=== PATIENT | male | born 1970 | race African-American/Black ===

== ENCOUNTER 2018-06-06 19:27 | Observation (INO) | payer OTHER ==
[2018-06-06 20:08] LABS: #Basophils 0.1 thou/uL (0.0-0.2); #Eosinphils 0.1 thou/uL (0.0-0.7); #Lymphocytes 1.2 thou/uL (1.20-3.40); #Monocytes 1.3 thou/uL (0.11-0.59); #Neutrophils 7.6 thou/uL (1.40-6.50); %Basophils 0.7 % (0.0-1.0); %Eosinophils 0.5 % (0.0-10.0); %Monocytes 12.6 % (0.0-10.0); %Neutrophils 74.2 % (42.0-75.0); Hemoglobin 14.5 g/dL (14.0-18.0); Mean Corpuscular HGB CONC 32.8 g/dL (32.0-36.0); Mean Corpuscular Hemoglobin 30.2 pg (27.0-31.0); Mean Corpuscular Volume 91.9 fL (78.0-98.0); Mean Platelet Volume 7.9 fL (7.4-10.4); Platelet Count 315 thou/uL (130-400); RBC Distribution Width 11.8 % (11.5-14.5); Red Blood Cell (RBC) Count 4.79 mill/uL (4.70-6.10); White Blood Cell (WBC) Count 10.2 thou/uL (4.8-10.8)
[2018-06-06] MEDS ORDERED: Lorazepam 2 MG/ML VIAL ONE (20:12)
[2018-06-06 20:29] LABS: ALT (SGPT) 35 U/L (8-55); AST (SGOT) 33 U/L (5-34); Albumin 3.7 g/dL (3.5-5.0); Alkaline Phosphatase 88 U/L (40-150); Anion Gap 14 mmol/L (10-20); BUN (Urea Nitrogen) 22 mg/dL (8.9-20.6); Bilirubin, Total 0.8 mg/dL (0.2-1.2); Calc. Creatinine Clearance 0 mL/min (70-130); Calcium 9.4 mg/dL (7.8-10.44); Carbon Dioxide 30 mmol/L (22-29); Chloride 94 mmol/L (98-107); Estimated GFR-MDRD 36; Globulin 4.4 g/dL (2.4-3.5); Glucose 140 mg/dL (70-105); Potassium 4.1 mmol/L (3.5-5.1); Protein, Total 8.1 g/dL (6.0-8.3); Sodium 134 mmol/L (136-145)
--- NOTE | 2018-06-06 21:30 | CT ---
CT BRAIN WITHOUT CONTRAST 06/06/18 HISTORY: Syncope. COMPARISON: CT brain 09/14/16. FINDINGS: No acute hemorrhage or infarct. No midline shift or mass effect. Ventricular size and extra-axial CSF spaces are normal. Calvarium is intact. The paranasal sinuses and mastoids are clear. IMPRESSION: No acute intracranial abnormality. 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 POS: [facility]
[2018-06-06 22:17] LABS: Phosphorus 3.6 mg/dL (2.3-4.7)
[2018-06-06 22:20] LABS: Magnesium 1.6 mg/dL (1.6-2.6)
--- NOTE | 2018-06-06 22:30 | RAD ---
CHEST ONE VIEW: 06/06/18 HISTORY: Dizziness and weakness. COMPARISON: Radiograph 12/02/15. FINDINGS: Lungs are clear. No pneumothorax or effusion. The cardiac silhouette and mediastinal contours are wit hin normal limits IMPRESSION: No acute intrathoracic abnormality. POS: [facility]
[2018-06-06] MEDS ORDERED: Multivitamins, Adult 10 ML, Thiamine HCl 100 MG, Folic Acid 1 MG in Dextrose 5 %-0.45 %... IV SCH (23:00)
--- NOTE | 2018-06-06 23:18 | CT ---
CT ABDOMEN AND PELVIS WITHOUT CONTRAST 06/06/18 HISTORY: Weakness. COMPARISON: CT aortic dissection protocol 12/02/15. FINDINGS: The lung bases are clear. No pericardial effusion. There is dense cholelithiasis. No evidence for cho lecystitis. The urinary bladder is distended. No free intraperitoneal gas or fluid. No dilated loops of large or small bowel. No retroperitoneal adenopathy. Mild degenerative changes of the lower lumbar spine. IMPRESSION: 1. Urinary bladder distention. No nephroureterolithiasis or hydroureteronephrosis. No secondary evidence of a recently passed stone. 2. Cholelithiasis without cholecystitis. POS: [facility]
[2018-06-07] MEDS ORDERED: Zolpidem Tartrate 5 MG TAB PO PRN (00:02)
[2018-06-07] MEDS ORDERED: Acetaminophen 325 MG TAB PO PRN (00:02)
[2018-06-07] MEDS ORDERED: Ondansetron PF 4 MG/2 ML Vial IVP PRN (00:02)
[2018-06-07] MEDS ORDERED: methylPREDNISolone Sod Succ/PF 125 MG/2 ML VIAL IVP SCH (00:15)
[2018-06-07] MEDS ORDERED: Bacteriostatic Water 30 ML VIAL FS PRN (00:20)
[2018-06-07] MEDS ORDERED: methylPREDNISolone Sod Succ 40 MG VIAL ONE ×2 (01:04→08:24)
[2018-06-07] MEDS: methylPREDNISolone Sod Succ 40 MG VIAL IVP SCH ×3 (01:09→17:01)
--- NOTE | 2018-06-07 02:39 | PDOC.EVN ---
Event Note - Event Note Event Note: [id number]
--- NOTE | 2018-06-07 03:00 | HP ---
ADMITTING COMPLAINT: Syncope and fall. ADMITTING HISTORY OF PRESENT ILLNESS: This is a 47-year-old male, with known history of severe alcoholism and alcohol abuse, coming in with syncopal episode and fall. The patient stated that he has not had any drinks, however, his mom at bedside states that apparently he was drinking and had passed out. The patient did hit his head. CT scan shows no acute intracranial abnormality except for an old right basal ganglia infarction. The patient himself was complaining of some abdominal pain as well as significant bilateral knee pain. Of note, does have a history of gout. CT scan shows urinary distention, however, no hydro-nephroureterolithiasis or hydroureteronephrosis was noted. Cholelithiasis was noted without cholecystitis. The patient at point in time of evaluation was saying that he was having knee pain and is unable to walk and that is why he is having these episodes of syncope and his legs giving out. The patient states that this has happened to him in the past when he has had a gout flare, but has not had one recently. The patient otherwise denies any other complaints. No alleviating or aggravating factors. No associated symptoms noted. The patient is seen and examined in the ER. His mother is at bedside. All questions answered. ALLERGIES: TO NOTHING. NO KNOWN DRUG ALLERGIES. HOME MEDICATIONS: See MAR. FAMILY HISTORY: Hypertension and diabetes mellitus type 2. SOCIAL HISTORY: He does have a history of alcohol abuse and appears to have likely drank more alcohol and is apparently having a gout flare. Also prior history of smoking. REVIEW OF SYSTEMS: All systems reviewed, pertinent positives in HPI, otherwise negative. PHYSICAL EXAMINATION: VITAL SIGNS: Blood pressure was 128/88, temperature of 98, O2 saturation 99% on room air, heart rate of 107. GENERAL: The patient is lying in bed, in no acute discomfort. HEENT: Normocephalic, atraumatic. Pupils equal, round, and reactive to light and accommodation. Extraocular muscles intact. NECK: Supple, mobile, nontender. Thyroid appreciated. CARDIOVASCULAR: Regular rate and rhythm, S1, S2. Faint systolic ejection murmur appreciated. RESPIRATORY: Clear to auscultation bilaterally. No increase in AP diameter. ABDOMEN: Positive bowel sounds. Soft, nontender, not distended. No ascites. EXTREMITIES: 2+ peripheral pulses. Bending the knee on both sides causes significant pain. Both knees are erythematous and hotter than the joint should be. NEUROLOGICAL: Cranial nerves 2 through 12 intact. No loss of motor or sensory function. LABORATORY DATA: The patient has CBC that is normal. Basic metabolic panel is normal except for a high sugar of 140, creatinine of 2.34. Creatine kinase of 236. ASSESSMENT: 1. Alcohol abuse. 2. Bilateral knee pain. 3. Acute kidney injury on chronic kidney disease versus chronic kidney disease. 4. Hyponatremia. 5. Metabolic alkalosis. PLAN: At this point in time, we will admit the patient to Internal Medicine Team. We will obtain bilateral knee x-rays. Gout is likely a consideration. Cannot have NSAIDs given the acute kidney injury, so we will start the patient on steroids. Consult to Nephrology as well. Bilateral knee x-rays obtained and pending. Uric acid levels will also be added to the lab for the morning. The patient also was given a banana bag for the hypotension he had earlier. The patient wishes to remain a full code. Case and plan discussed with the patient and his mother at length. They understood and agreed with this plan. Job ID: [id number]
[2018-06-07 04:18] LABS: #Lymphocytes 0.6 thou/uL (1.20-3.40); #Monocytes 0.3 thou/uL (0.11-0.59); #Neutrophils 7.7 thou/uL (1.40-6.50); %Basophils 0.1 % (0.0-1.0); %Eosinophils 0.1 % (0.0-10.0); %Lymphocytes 7.2 % (21.0-51.0); %Monocytes 3.8 % (0.0-10.0); %Neutrophils 88.8 % (42.0-75.0); Hemoglobin 13.2 g/dL (14.0-18.0); Mean Corpuscular HGB CONC 33.7 g/dL (32.0-36.0); Mean Corpuscular Volume 92.1 fL (78.0-98.0); Platelet Count 289 thou/uL (130-400); RBC Distribution Width 11.8 % (11.5-14.5); Red Blood Cell (RBC) Count 4.27 mill/uL (4.70-6.10); White Blood Cell (WBC) Count 8.6 thou/uL (4.8-10.8)
[2018-06-07 04:42] LABS: Anion Gap 12 mmol/L (10-20); BUN (Urea Nitrogen) 19 mg/dL (8.9-20.6); Calc. Creatinine Clearance 0 mL/min (70-130); Calcium 8.9 mg/dL (7.8-10.44); Carbon Dioxide 25 mmol/L (22-29); Chloride 104 mmol/L (98-107); Estimated GFR-MDRD 50; Glucose 154 mg/dL (70-105); Potassium 4.4 mmol/L (3.5-5.1); Sodium 137 mmol/L (136-145); Uric Acid 10.2 mg/dL (3.5-7.2)
--- NOTE | 2018-06-07 07:41 | RAD ---
LEFT KNEE 2 VIEWS: INDICATION: Concern for gout. COMPARISON: Left knee radiograph dated 02/21/2012. FINDINGS: There is worsening mild osteoarthrosis of the left knee. No periarticular erosion is evident. There is soft tissue swelling of the anterior left knee that is stable to the prior exam. Enthesopathic c hange is seen off the patella. IMPRESSION: Stable anterior prepatellar soft tissue swelling may reflect persistent or chronic prepatellar bursit is. POS: [facility]
--- NOTE | 2018-06-07 07:41 | RAD ---
RIGHT KNEE 2 VIEWS: Date: 06/07/18 INDICATION: Concern for gout. COMPARISON: None. FINDINGS: There is prominent soft tissue thickening of the patellar tendon and prepatellar soft tissues, which is nonspecific. There is a suspected radiopaque foreign body within the soft tissues of the anteromed ial right knee. IMPRESSION: Prominent soft tissue swelling of the anterior right knee. This is stable from the comparison in 2016 . Radiopaque foreign body at the anteromedial aspect of the right knee is stable. POS: [facility]
[2018-06-07] MEDS ORDERED: Amlodipine 5 MG TAB ONE (08:24)
[2018-06-07] MEDS: Amlodipine 10 MG TAB PO SCH (08:36)
[2018-06-07] MEDS: Aspirin 81 mg Enteric Coated Tablet PO SCH (08:37)
[2018-06-07] MEDS: Carvedilol 3.125 MG TAB PO SCH ×2 (08:37→16:57)
[2018-06-07] MEDS: Heparin 5,000 UNITS/ML VIAL SC SCH ×2 (11:00→21:01)
[2018-06-07 16:29] VITALS: BMI 26.3
[2018-06-07 17:38] LABS: CRP (Inflammatory) 4.01 mg/dL (= or < 0.5)
[2018-06-07] MEDS ORDERED: hydrALAZINE 20 MG/ML VIAL SLOW IVP PRN (18:09)
--- NOTE | 2018-06-07 18:16 | PDOC.PN ---
- Subjective Encounter Start Date: 06/07/18 Encounter Start Time: 15:14 Subjective: Patient is currently without complaints. He states he has had no further -: dizziness or lightheadedness. Denies having any chest pain. Reports having -: brianna "shock" like pain in his knees and his right big toe, attributed to his gout. [place] this yesterday when he had the moment of lightheadedness/ dizziness. Unable to clearly describe due to having his eyes closed but states it has not reoccurred. He has not had any abdominal pain or cramping. No bowel changes or urinary symptoms. No tremors or agitation despite abrupt cessation of Alcohol this past Sunday. He was drinking 24 cans of Budlight daily. Has been drinking clear liquids since. No liquor or other alcohol since. - Objective Resuscitation Status - Order Detail: 06/07/18 00:02 Resuscitation Status Routine Resuscitation Status: FULL: Full Resuscitation Discussed with: patient Vital Signs & Weight: Vital Signs (12 hours) Temp Pulse Resp BP Pulse Ox 06/07/18 15:45 98.7 F 67 16 193/114 H 97 Weight Weight 168 lb 4.8 oz Result Diagrams: 06/07/18 04:06 06/07/18 04:05 Phys Exam - Physical Examination Constitutional: NAD HEENT: PERRLA, moist MMs, oral pharynx no lesions Neck: supple, full ROM Respiratory: clear to auscultation bilateral Cardiovascular: RRR Gastrointestinal: soft, non-tender, no distention, positive bowel sounds Musculoskeletal: no edema, pulses present knees without swelling, redness or tenderness, no warmth. Neurological: moves all 4 limbs Psychiatric: normal affect, A&O x 3 Skin: no rash Dx/Plan (1) Alcohol abuse Code(s): F10.10 - ALCOHOL ABUSE, UNCOMPLICATED Status: Acute (2) Lightheaded Code(s): R42 - DIZZINESS AND GIDDINESS Status: Acute (3) Gout Code(s): M10.9 - GOUT, UNSPECIFIED Status: Acute Plan: unable to start colchicine due to underlying CKD and interaction. Allopurinol 100 mg PO daily. Continue to monitor. Not symptomatic at present but uric acid elevated. (4) Hypertensive urgency Code(s): I10 - ESSENTIAL (PRIMARY) HYPERTENSION Status: Acute - Plan cont current plan of care Patient recently started on amlodipine by PCP. -: Continue home mediactions. Hydralazine PRN for elevated BP. -: Continue to monitor BP. -: Check orthostatic BPs. * .
[2018-06-07] MEDS ORDERED: Diazepam 5 MG TAB PO PRN (18:19)
[2018-06-07 18:25] LABS: #Basophils 0.1 thou/uL (0.0-0.2); #Lymphocytes 0.6 thou/uL (1.20-3.40); #Monocytes 0.3 thou/uL (0.11-0.59); %Basophils 1.4 % (0.0-1.0); %Lymphocytes 5.6 % (21.0-51.0); Hemoglobin 13.6 g/dL (14.0-18.0); Mean Platelet Volume 8.2 fL (7.4-10.4); Platelet Count 268 thou/uL (130-400); RBC Distribution Width 11.7 % (11.5-14.5); Red Blood Cell (RBC) Count 4.52 mill/uL (4.70-6.10)
[2018-06-07] MEDS ORDERED: Thiamine HCl 200 MG/2 ML VIAL IM SCH (18:30)
[2018-06-07 18:38] LABS: Bilirubin Negative (Negative); Blood, Urine Negative (Negative); Clarity CLEAR (Clear); Glucose, Urine (Dipstick) Negative (Negative); Leukocyte Small (Negative); Nitrite Negative (Negative); Protein, Urine (Dipstick) 100 mg/dL (Neg-Trace); Specific Gravity, Urine 1.008 (1.002-1.036); pH, Urine 6.5 (5.0-9.0)
[2018-06-07 18:44] LABS: Bacteria/HPF None Seen HPF (None Seen); Hyaline Casts/LPF 0-3 HYALINE CAST LPF (0-3 Hyaline); RBC/HPF 0-3 HPF (0-3); Squamous Epithelial 0-3 HPF (0-3)
[2018-06-07 18:52] LABS: Urine Culture Reflex Yes Yes
[2018-06-07 18:55] LABS: Amphetamine Not Detected (NotDetected); Barbiturates Screen Not Detected (NotDetected); Benzodiazepine Screen Not Detected (NotDetected); Cocaine Metabolite Screen Not Detected (NotDetected); Medtox Control Line Valid? VALID (VALID); Medtox Reader # READER 1; Methadone Not Detected (NotDetected); Methamphetamine Not Detected (NotDetected); Opiate Screen Not Detected (NotDetected); Oxycodone Screen Not Detected (NotDetected); Phencyclidine (PCP) Not Detected (NotDetected); THC/Cannabinoid Screen Not Detected (NotDetected); Tricyclic Screen Not Detected (NotDetected)
[2018-06-07 19:00] LABS: ALT (SGPT) 33 U/L (8-55); AST (SGOT) 41 U/L (5-34); Albumin 3.5 g/dL (3.5-5.0); Alkaline Phosphatase 99 U/L (40-150); Anion Gap 14 mmol/L (10-20); BUN (Urea Nitrogen) 19 mg/dL (8.9-20.6); Bilirubin, Direct 0.2 mg/dL (0.1-0.3); Bilirubin, Total 0.4 mg/dL (0.2-1.2); Calc. Creatinine Clearance 60 mL/min (70-130); Carbon Dioxide 24 mmol/L (22-29); Chloride 103 mmol/L (98-107); Estimated GFR-MDRD 54; Globulin 4.2 g/dL (2.4-3.5); Glucose 252 mg/dL (70-105); Potassium 4.1 mmol/L (3.5-5.1); Protein, Total 7.7 g/dL (6.0-8.3); Sodium 137 mmol/L (136-145)
[2018-06-07 19:25] LABS: Syphilis Antibody Index 4.28 S/CO (<1.00 Non-Reactive)
[2018-06-07] MEDS ORDERED: Atorvastatin Calcium 40 MG TAB PO SCH (21:00)
[2018-06-08] MEDS: methylPREDNISolone Sod Succ 40 MG VIAL IVP SCH ×2 (00:46→08:28)
--- NOTE | 2018-06-08 00:59 | CON ---
DATE OF CONSULTATION: 06/07/2018 CONSULTING PHYSICIAN: Dr. Michaels. REASON FOR CONSULTATION: Acute kidney injury. REASON FOR ADMISSION: Fall. HISTORY OF PRESENT ILLNESS: A 47-year-old male with history of hypertension, type 2 diabetes, came to the hospital with fall and was found to have elevated creatinine at 2.34, back to 1.7. No fevers or chills. No nausea or vomiting. PAST MEDICAL HISTORY: Positive for type 2 diabetes, hypertension. PAST SURGICAL HISTORY: Reviewed. HOME MEDICATIONS: See the list. ALLERGIES: NO KNOWN DRUG ALLERGIES. SOCIAL HISTORY: No smoking, alcohol, or illicit drug use. FAMILY HISTORY: No history of kidney disease. REVIEW OF SYSTEMS: CONSTITUTIONAL: Negative for weight loss or gain, ability to conduct usual activities. SKIN: Negative for rash, itching. EYES: Negative for double vision, pain. ENT/MOUTH: Negative for nose bleeding, neck stiffness, pain, tenderness. CARDIOVASCULAR: Negative for palpitations, dyspnea on exertion, orthopnea. RESPIRATORY: Negative for shortness of breath, wheezing, cough, hemoptysis, fever or night sweats. GASTROINTESTINAL: Negative for poor appetite, abdominal pain, heartburn, nausea, vomiting, constipation, or diarrhea. GENITOURINARY: Negative for urgency, frequency, dysuria, nocturia. MUSCULOSKELETAL: Negative for pain, swelling. NEUROLOGIC/PSYCHIATRIC: Negative for anxiety, depression. ALLERGY/IMMUNOLOGIC: Negative for skin rash, bleeding tendency. PHYSICAL EXAMINATION: GENERAL: Reveals well-built male, in no apparent distress. VITAL SIGNS: Temperature 98.7, pulse 67, respiratory rate . HEENT: Atraumatic and normocephalic. Oral mucosa is moist. NECK: Supple. CVS: S1 and S2 heard. Regular rate and rhythm. RESPIRATORY: Clear. GI: Abdomen is soft. MUSCULOSKELETAL: 1+ edema. DERMATOLOGIC: No skin rash. NEUROLOGIC: Alert and awake. PSYCHIATRIC: Normal mood and affect. LABORATORY DATA: Potassium is 4.4, creatinine is 1.7. ASSESSMENT AND PLAN: 1. Acute kidney injury. Avoid nephrotoxins. 2. Hyperuricemia. 3. Hypertension, titrate medication. 4. Edema, controlled. 5. Avoid nephrotoxins. We will follow. Job ID: [id number]
[2018-06-08 02:34] LABS: Syphilis Antibody INDETERMINATE (Nonreactive); Syphilis Titer Non-Reactive (Negative)
[2018-06-08] MEDS ORDERED: Diazepam 5 MG TAB PO PRN (04:00)
[2018-06-08] MEDS ORDERED: HumaLOG 300 UNITS/3 ML VIAL SC PRN ×2 (04:55)
[2018-06-08 05:45] LABS: #Lymphocytes 0.8 thou/uL (1.20-3.40); #Monocytes 0.5 thou/uL (0.11-0.59); #Neutrophils 12.4 thou/uL (1.40-6.50); %Eosinophils 0.1 % (0.0-10.0); %Monocytes 3.6 % (0.0-10.0); %Neutrophils 90.3 % (42.0-75.0); Hemoglobin 13.5 g/dL (14.0-18.0); Mean Corpuscular HGB CONC 33.5 g/dL (32.0-36.0); Mean Corpuscular Hemoglobin 30.4 pg (27.0-31.0); Mean Corpuscular Volume 90.8 fL (78.0-98.0); Mean Platelet Volume 8.7 fL (7.4-10.4); Platelet Count 266 thou/uL (130-400); RBC Distribution Width 11.7 % (11.5-14.5); Red Blood Cell (RBC) Count 4.43 mill/uL (4.70-6.10); White Blood Cell (WBC) Count 13.8 thou/uL (4.8-10.8)
[2018-06-08 06:10] LABS: ALT (SGPT) 39 U/L (8-55); AST (SGOT) 50 U/L (5-34); Albumin 3.3 g/dL (3.5-5.0); Alkaline Phosphatase 94 U/L (40-150); Anion Gap 13 mmol/L (10-20); BUN (Urea Nitrogen) 19 mg/dL (8.9-20.6); Bilirubin, Total 0.5 mg/dL (0.2-1.2); Calc. Creatinine Clearance 66 mL/min (70-130); Calcium 9.1 mg/dL (7.8-10.44); Carbon Dioxide 25 mmol/L (22-29); Chloride 103 mmol/L (98-107); Estimated GFR-MDRD 61; Globulin 4.2 g/dL (2.4-3.5); Glucose 134 mg/dL (70-105); Hemoglobin A1c 4.9 % (4.0-6.0); Potassium 4.3 mmol/L (3.5-5.1); Protein, Total 7.5 g/dL (6.0-8.3); Sodium 137 mmol/L (136-145)
[2018-06-08 08:20] VITALS: TEMP 98.1
[2018-06-08] MEDS: Carvedilol 3.125 MG TAB PO SCH (08:22)
[2018-06-08] MEDS: Aspirin 81 mg Enteric Coated Tablet PO SCH (08:23)
[2018-06-08] MEDS: Amlodipine 10 MG TAB PO SCH (08:23)
[2018-06-08] MEDS: Heparin 5,000 UNITS/ML VIAL SC SCH (08:24)
[2018-06-08] MEDS ORDERED: Magnesium Oxide 400 MG TAB PO SCH (09:00)
[2018-06-08] MEDS ORDERED: Thiamine 100 MG TAB PO SCH (09:00)
[2018-06-08] MEDS ORDERED: Allopurinol 100 MG TAB PO SCH (09:00)
[2018-06-08] MEDS ORDERED: Folic Acid 1 MG TAB PO SCH (09:00)
[2018-06-08] MEDS ORDERED: Multivitamin W/ Minerals 1 TAB PO SCH (09:00)
[2018-06-08] MEDS ORDERED: Hydrochlorothiazide 25 MG TAB PO SCH (09:00)
--- NOTE | 2018-06-08 09:54 | PDOC.PN ---
- Subjective Encounter Start Date: 06/08/18 Encounter Start Time: 09:52 Mr. Nash was seen today in follow-up of gout flare and alcohol abuse. He says he feels much better today. He has walked down the [place]agan without difficulty. - Objective Resuscitation Status - Order Detail: 06/07/18 00:02 Resuscitation Status Routine Resuscitation Status: FULL: Full Resuscitation Discussed with: patient MAR Reviewed: Yes Vital Signs & Weight: Vital Signs (12 hours) Temp Pulse Resp BP BP BP BP 06/08/18 07:49 98.1 F 64 12 162/105 H 162/107 H 173/107 H 06/08/18 04:00 97.9 F 67 16 157/100 H 157/100 H 06/08/18 00:02 06/08/18 00:00 98.0 F 80 12 156/92 H 156/92 H Pulse Ox 06/08/18 07:49 97 06/08/18 04:00 97 06/08/18 00:02 95 06/08/18 00:00 95 Weight Weight 167 lb 11.2 oz I&O: 06/07/18 06/08/18 06/09/18 06:59 06:59 06:59 Intake Total 740 Output Total 800 400 Balance -60 -400 Result Diagrams: 06/08/18 04:46 06/08/18 04:46 Phys Exam - Physical Examination Respiratory: no wheezing, no rales, no rhonchi, clear to auscultation bilateral Cardiovascular: RRR, no significant murmur, no rub Gastrointestinal: soft, non-tender, positive bowel sounds Musculoskeletal: pulses present + mild joint effusion on the right, no warmth, no erythema Dx/Plan (1) Gout Code(s): M10.9 - GOUT, UNSPECIFIED Status: Acute (2) Alcohol abuse Code(s): F10.10 - ALCOHOL ABUSE, UNCOMPLICATED Status: Acute (3) Hypertension Code(s): I10 - ESSENTIAL (PRIMARY) HYPERTENSION Status: Acute - Plan * Gout flare- improved- will continue Allopurinol, and he will need close outpatient follow-up * Alcohol Abuse.- discussed with the patient- he says he plans to go to a program to help him * HTN- blood pressure is elevated- will add Hydralazine to his regimen .
[2018-06-08 10:03] VITALS: BP 159/100
--- NOTE | 2018-06-08 15:23 | PRG ---
DATE OF SERVICE: 06/08/2018 SUBJECTIVE: Patient was seen and examined at bedside and overnight events noted. Patient denies any shortness of breath or chest pain or palpitation. No history of nausea or vomiting or diarrhea or fever or chills or cramps. OBJECTIVE: GENERAL: This is a well-built male, in no apparent distress. VITAL SIGNS: Temperature 98.1. Heart rate 64. Respiratory rate 18. Blood pressure 162/107. HEENT: Atraumatic, normocephalic. Oral mucosa is moist NECK: Supple. CARDIOVASCULAR: S1, S2 heard. Rate and rhythm regular. RESPIRATORY: Clear to auscultation. GASTROINTESTINAL: Abdomen is soft. MUSCULOSKELETAL: No tenderness. No edema. DERMATOLOGIC: No skin rash. NEUROLOGIC: Alert and awake and oriented X3. No focal neurologic deficits. Moving all the extremities. PSYCHIATRIC: Mood and affect normal. LABORATORY DATA: Potassium 4.3, BUN is 19, creatinine is 1.5. ASSESSMENT AND PLAN: 1. Acute kidney injury on chronic kidney disease, stage 2. Renal function is stable. 2. Hypertension, we will titrate medication. 3. Edema, controlled. 4. Anemia, stable. 5. Advised to follow up with the clinic in 2 to 3 weeks. Job ID: [id number]
--- NOTE | 2018-06-10 12:05 | DIS ---
DATE OF ADMISSION: 06/06/2018 DATE OF DISCHARGE: 06/08/2018 DISCHARGE DISPOSITION: Home. PRIMARY DISCHARGE DIAGNOSES: 1. Gout flare. 2. Alcohol abuse. 3. Mild alcohol withdrawal. 4. Hypertension. 5. Diabetes mellitus, type 2. DISCHARGE MEDICATIONS: Include; 1. Allopurinol 100 mg p.o. daily. 2. Aspirin 81 mg daily. 3. Tylenol 500 mg q.8 as needed. 4. Amlodipine 10 mg daily. 5. Lipitor 40 mg at bedtime. 6. Carvedilol 3.125 mg twice daily. 7. Folic acid 1 mg daily. 8. Hydrochlorothiazide 25 mg daily. 9. Thiamine 100 mg daily. PROCEDURES DONE DURING ADMISSION: The patient had a CT scan of the abdomen and pelvis, showing a urinary bladder distention. There was no nephroureterolithiasis or hydroureteronephrosi, cholelithiasis without cholecystitis. He had a CT scan of the brain showing no acute intracranial abnormality. There is an old basal ganglia infarct. CODE STATUS: Full code. ALLERGIES: NO KNOWN DRUG ALLERGIES. HOSPITAL COURSE: Mr. Nash is a pleasant 47-year-old gentleman, who presented to the emergency room, he says after his legs got weak and stiff and basically gave out on him. He says that he did not lose consciousness. However, in the ER notes he said he had a syncopal episode. He is a heavy drinker and it is possible he may have had some alcohol either withdrawal or intoxication. He was also found to have a gout flare due to knee swelling and his uric acid level was elevated. He was started on allopurinol and improved. CT scan of the brain was negative. He had some mild withdrawal symptoms, which improved by the time of discharge. He was counseled on the need for abstinence in the dangers of continued alcohol abuse including liver failure and . Also, he had some acute on chronic kidney disease, which improved by the time of his discharge and he was subsequently discharged home. Job ID: [id number]
--- NOTE | 2018-06-15 22:29 | EKG ---
Test Reason : Blood Pressure : / mmHG Vent. Rate : 096 BPM Atrial Rate : 096 BPM P-R Int : 150 ms QRS Dur : 090 ms QT Int : 340 ms P-R-T Axes : 061 023 -09 degrees QTc Int : 429 ms Normal sinus rhythm Possible Left atrial enlargement Left ventricular hypertrophy Nonspecific ST and T wave abnormality Abnormal ECG Confirmed by KAT CHAVIS D.O. ([id number]), web editor MEGHAN BRIONES ([id number]) on 06/15/2018 10:29:18 PM Referred By: Confirmed By:KAT CHAVIS D.O.
== END 2018-06-08 11:13 | disposition home or self-care (01) ==
LOC: ERS 19:27 → 2SW 22:48 → ERHOLD 22:50 → 2SW 06-07 15:30
PROVIDERS: ADMIT Internal Medicine; ATTEND Internal Medicine
DX: F10.239 Alcohol dependence with withdrawal, unspecified (principal); M10.9 Gout, unspecified; I12.9 Hypertensive chronic kidney disease with stage 1 through stage 4 chronic kidney disease, or unspecified chronic kidney disease; E11.22 Type 2 diabetes mellitus with diabetic chronic kidney disease; N18.2 Chronic kidney disease, stage 2 (mild); N17.9 Acute kidney failure, unspecified; E87.1 Hypo-osmolality and hyponatremia; E87.3 Alkalosis; Z79.82 Long term (current) use of aspirin; Z79.899 Other long term (current) drug therapy
CPT/HCPCS: 36415; 70450; 71045; 74176; 80048; 80053; 80306; 81001; 82248; 82550; 83036; 83735; 83880; 84100; 84484; 84550; 85025; 86140; 86593; 86780; 87086; 90471; 90686; 90732; 93005; 96361; 96365; 96366; 96372; 96375; 96376; G0008; G0009; G0378; J1644; J2060; J2920; J3411; J3475; J7042; J7050

== ENCOUNTER 2018-07-15 06:51 | Outpatient (CLI) | payer OTHER ==
--- NOTE | 2018-07-15 08:19 | ULT ---
US Abd Pel DupArt Jose Flow Cmp History: [Chronic kidney disease] Comparison: CT abdomen and pelvis without contrast June 06, 2018 Findings: Real-time grayscale, color, and spectral analysis of the kidneys and vessels was performed. The aortic peak systolic velocities 47 cm/s. Right renal artery peak systolic velocity measures 10 8 cm/s left renal artery peak systolic velocity measures 43 cm/s. The right renal artery/aortic ratio is 2.3 and the left is 0.92 Mild increased resistive indices of the arcuate vessels on the left. The right kidney measures 9.3 x 5.2 x 5.8 cm and left kidney measures 10 x 5.2 x 4.6 cm. No mass, hyd ronephrosis, or abnormal calcifications. Impression: No evidence for renal artery stenosis.
== END 2018-07-15 06:52 | disposition home or self-care (01) ==
LOC: ULT 06:51
PROVIDERS: ATTEND Student in an Organized Health Care Education/Training Program
DX: I12.9 Hypertensive chronic kidney disease with stage 1 through stage 4 chronic kidney disease, or unspecified chronic kidney disease (principal); N18.3 Chronic kidney disease, stage 3 (moderate)
CPT/HCPCS: 76700

== ENCOUNTER 2019-08-28 14:28 | Emergency (ER) | payer OTHER ==
[2019-08-28 15:50] LABS: #Basophils 0.1 thou/uL (0.0-0.2); #Eosinphils 1.1 thou/uL (0.0-0.7); #Lymphocytes 1.5 thou/uL (1.20-3.40); #Monocytes 0.5 thou/uL (0.11-0.59); #Neutrophils 3.5 thou/uL (1.40-6.50); %Eosinophils 16.8 % (0.0-10.0); %Lymphocytes 22.3 % (21.0-51.0); %Monocytes 7.3 % (0.0-10.0); %Neutrophils 52.5 % (42.0-75.0); Hemoglobin 14.3 g/dL (14.0-18.0); Mean Corpuscular HGB CONC 34.4 g/dL (32.0-36.0); Mean Corpuscular Hemoglobin 31.7 pg (27.0-31.0); Mean Corpuscular Volume 92.1 fL (78.0-98.0); Platelet Count 245 thou/uL (130-400); RBC Distribution Width 12.5 % (11.5-14.5); Red Blood Cell (RBC) Count 4.51 mill/uL (4.70-6.10); White Blood Cell (WBC) Count 6.6 thou/uL (4.8-10.8)
[2019-08-28 16:06] LABS: ALT (SGPT) 115 U/L (8-55); AST (SGOT) 157 U/L (5-34); Albumin 3.7 g/dL (3.5-5.0); Alkaline Phosphatase 116 U/L (40-110); Anion Gap 15 mmol/L (10-20); BUN (Urea Nitrogen) 16 mg/dL (8.9-20.6); Bilirubin, Total 0.4 mg/dL (0.2-1.2); CK (CPK) 244 U/L (30-200); Calc. Creatinine Clearance 0 mL/min (70-130); Calcium 8.3 mg/dL (7.8-10.44); Carbon Dioxide 21 mmol/L (22-29); Chloride 102 mmol/L (98-107); Estimated GFR-MDRD 61; Globulin 4.1 g/dL (2.4-3.5); Glucose 88 mg/dL (70-105); Potassium 4.2 mmol/L (3.5-5.1); Protein, Total 7.8 g/dL (6.0-8.3); Sodium 134 mmol/L (136-145)
--- NOTE | 2019-08-28 16:46 | RAD ---
Exam: Chest one view HISTORY:Chest pain. Comparison: 06/06/2018 FINDINGS: Cardiac silhouette: Normal Aorta: Unremarkable Pulmonary vessels: Normal Costophrenic angles: Clear LUNGS: No masses or consolidation. Pneumothorax: None Osseous abnormalities: None IMPRESSION: No acute cardiopulmonary process.
[2019-08-28 19:31] LABS: Bilirubin Negative (Negative); Blood, Urine Trace (Negative); Clarity Clear (Clear); Glucose, Urine (Dipstick) Normal (Negative); Leukocyte 250 Leu/uL (Negative); Nitrite Negative (Negative); Protein, Urine (Dipstick) 70 mg/dL (Neg-Trace); RBC/HPF 0-3 HPF (0-3); Squamous Epithelial 0-3 HPF (0-3); Urobilinogen Normal mg/dL (Less than 2)
[2019-08-28 19:33] LABS: Bacteria/HPF 1+ HPF (None Seen)
[2019-08-29 12:55] LABS: SARS-CoV-2 MS2 Positive; SARS-CoV-2 N Gene Negative; SARS-CoV-2 S Gene Negative; SARS-CoV-2 orf1ab Negative
[2019-08-30 15:08] LABS: Chlam.trachomatis by PCR,Urine Not Detected (NotDetected)
== END 2019-08-28 21:25 | disposition home or self-care (01) ==
LOC: ERS 14:28
DX: R55 Syncope and collapse (principal); N39.0 Urinary tract infection, site not specified; I10 Essential (primary) hypertension; M10.9 Gout, unspecified; F41.9 Anxiety disorder, unspecified; F31.9 Bipolar disorder, unspecified; F17.220 Nicotine dependence, chewing tobacco, uncomplicated; Z79.1 Long term (current) use of non-steroidal anti-inflammatories (NSAID); Z79.899 Other long term (current) drug therapy; Z79.891 Long term (current) use of opiate analgesic
CPT/HCPCS: 36415; 71045; 80053; 81003; 81015; 82550; 83690; 84484; 85025; 87491; 87591; 87635; 93005; 94760; 96360; U0003

== ENCOUNTER 2020-03-04 09:30 | Emergency (ER) | payer OTHER ==
[2020-03-04] MEDS ORDERED: Ketorolac Tromethamine 30 MG/ML VIAL ONE (11:22)
== END 2020-03-04 11:40 | disposition home or self-care (01) ==
LOC: ERS 09:30
DX: M10.9 Gout, unspecified (principal); I10 Essential (primary) hypertension; F17.220 Nicotine dependence, chewing tobacco, uncomplicated
CPT/HCPCS: 96372; 99283; J1885

== ENCOUNTER 2020-06-28 19:21 | Inpatient (IN) | payer OTHER ==
[~2020-06-28 19:21] MED LIST: Iopamidol-370 76% 500 ML 1 ML ONE
[2020-06-28] MEDS ORDERED: Aspirin 325 MG TAB ONE ×2 (19:38→19:42)
[2020-06-28] MEDS ORDERED: Lorazepam 2 MG/ML VIAL ONE (19:38)
[2020-06-28 19:54] LABS: #Basophils 0.1 thou/uL (0.0-0.2); #Eosinphils 0.4 thou/uL (0.0-0.7); #Lymphocytes 3.5 thou/uL (1.20-3.40); #Neutrophils 6.5 thou/uL (1.40-6.50); %Basophils 1.2 % (0.0-1.0); %Eosinophils 3.4 % (0.0-10.0); %Lymphocytes 30.2 % (21.0-51.0); %Monocytes 8.8 % (0.0-10.0); %Neutrophils 56.4 % (42.0-75.0); Hemoglobin 13.3 g/dL (14.0-18.0); Mean Corpuscular HGB CONC 33.8 g/dL (32.0-36.0); Mean Corpuscular Hemoglobin 31.9 pg (27.0-31.0); Mean Corpuscular Volume 94.3 fL (78.0-98.0); Mean Platelet Volume 6.5 fL (7.4-10.4); Platelet Count 388 thou/uL (130-400); RBC Distribution Width 12.4 % (11.5-14.5); Red Blood Cell (RBC) Count 4.16 mill/uL (4.70-6.10); White Blood Cell (WBC) Count 11.5 thou/uL (4.8-10.8)
[2020-06-28 20:14] LABS: ALT (SGPT) 47 U/L (8-55); AST (SGOT) 80 U/L (5-34); Albumin 3.6 g/dL (3.5-5.0); Alkaline Phosphatase 102 U/L (40-110); Anion Gap 17 mmol/L (10-20); BUN (Urea Nitrogen) 14 mg/dL (8.9-20.6); Bilirubin, Total 0.4 mg/dL (0.2-1.2); Calc. Creatinine Clearance 0 mL/min (70-130); Calcium 8.7 mg/dL (7.8-10.44); Carbon Dioxide 24 mmol/L (22-29); Chloride 99 mmol/L (98-107); Globulin 4.7 g/dL (2.4-3.5); Glucose 98 mg/dL (70-105); Potassium 4.5 mmol/L (3.5-5.1); Protein, Total 8.3 g/dL (6.0-8.3); Sodium 135 mmol/L (136-145)
[2020-06-28] MEDS ORDERED: Pantoprazole 40 MG VIAL ONE (22:56)
[2020-06-28] MEDS ORDERED: Lorazepam 2 MG/ML VIAL SLOW IVP PRN (23:18)
[2020-06-28] MEDS ORDERED: Nitroglycerin 0.4 MG TAB (25 Tab Bottle) SL PRN (23:19)
[2020-06-28] MEDS ORDERED: Diazepam 5 MG TAB PO PRN (23:25)
[2020-06-28] MEDS ORDERED: Thiamine HCl 200 MG/2 ML VIAL IM SCH (23:30)
[2020-06-29 00:14] LABS: Lipase 45 U/L (8-78); Phosphorus 3.6 mg/dL (2.3-4.7); Troponin I 0.016 ng/mL (< 0.028)
[2020-06-29 01:07] LABS: Bacteria/HPF 1+ HPF (None Seen); Bilirubin Negative (Negative); Blood, Urine 1+ (Negative); Clarity Extra Turbid (Clear); Glucose, Urine (Dipstick) Normal (Negative); Ketone, Urine Negative (Negative); Leukocyte 500 Leu/uL (Negative); Nitrite Negative (Negative); Protein, Urine (Dipstick) 100 mg/dL (Neg-Trace); Specific Gravity, Urine 1.008 (1.002-1.036); Squamous Epithelial 0-3 HPF (0-3); Urobilinogen Normal mg/dL (Less than 2); WBC/HPF Greater than 50 HPF (0-3); pH, Urine 5.5 (5.0-9.0)
[2020-06-29 01:53] VITALS: BMI 25.7
[2020-06-29 02:15] LABS: Amphetamine Not Detected (NotDetected); Barbiturates Screen Not Detected (NotDetected); Benzodiazepine Screen Not Detected (NotDetected); Cocaine Metabolite Screen Not Detected (NotDetected); Medtox Control Line Valid? VALID (VALID); Medtox Reader # READER 4; Methadone Not Detected (NotDetected); Methamphetamine Not Detected (NotDetected); Opiate Screen Not Detected (NotDetected); Oxycodone Screen Not Detected (NotDetected); Phencyclidine (PCP) Not Detected (NotDetected); THC/Cannabinoid Screen Not Detected (NotDetected); Tricyclic Screen Not Detected (NotDetected)
[2020-06-29] MEDS ORDERED: Acetaminophen 325 MG TAB PO PRN (02:15)
[2020-06-29] MEDS ORDERED: Ondansetron PF 4 MG/2 ML Vial IVP PRN (02:15)
[2020-06-29] MEDS ORDERED: Ondansetron ODT 4 MG TAB SL PRN (02:15)
[2020-06-29 03:02] LABS: Cardiac Risk 1.7 (Less than 4.5)
[2020-06-29 03:04] LABS: Troponin I 0.019 ng/mL (< 0.028)
[2020-06-29] MEDS: cefTRIAXone\\ROCEPHIN 1 GM in Sodium Chloride 0.9% 100 ML IVPB SCH (03:48)
[2020-06-29] MEDS ORDERED: Diazepam 5 MG TAB PO PRN (04:00)
[2020-06-29 05:06] LABS: SARS-CoV-2 PCR by NAA Not Detected (NotDetected)
[2020-06-29] MEDS: Magnesium Oxide 400 MG TAB PO SCH (08:09)
[2020-06-29] MEDS: Aspirin Chewable 81 MG TAB PO SCH (08:09)
[2020-06-29] MEDS: Multivitamin W/ Minerals 1 TAB PO SCH (08:09)
[2020-06-29] MEDS: Folic Acid 1 MG TAB PO SCH (08:09)
[2020-06-29] MEDS: Thiamine 100 MG TAB PO SCH ×2 (08:09→09:47)
[2020-06-29] MEDS: Pantoprazole 40 MG VIAL IVP SCH (08:11)
[2020-06-29] MEDS: Amlodipine 10 MG TAB PO SCH (09:47)
[2020-06-29] MEDS: Allopurinol 100 MG TAB PO SCH (09:48)
[2020-06-29] MEDS: Lorazepam 1 MG TAB PO PRN (12:35)
[2020-06-29] MEDS ORDERED: Carvedilol 3.125 MG TAB PO SCH (13:45)
[2020-06-29] MEDS ORDERED: Hydrochlorothiazide 25 MG TAB PO SCH (13:45)
[2020-06-29] MEDS: Carvedilol 3.125 MG TAB PO SCH (18:15)
[2020-06-29] MEDS ORDERED: Acetaminophen 500 MG TAB PO SCH (20:45)
[2020-06-29] MEDS: Atorvastatin Calcium 40 MG TAB PO SCH (21:30)
[2020-06-30] MEDS ORDERED: Colchicine 0.6 MG TAB PO SCH ×4 (04:15→09:00)
[2020-06-30] MEDS: cefTRIAXone\\ROCEPHIN 1 GM in Sodium Chloride 0.9% 100 ML IVPB SCH (04:21)
[2020-06-30 04:27] LABS: Hemoglobin 12.2 g/dL (14.0-18.0); Mean Corpuscular HGB CONC 32.7 g/dL (32.0-36.0); Mean Corpuscular Hemoglobin 31.3 pg (27.0-31.0); Mean Corpuscular Volume 95.5 fL (78.0-98.0); Mean Platelet Volume 7.1 fL (7.4-10.4); Platelet Count 297 thou/uL (130-400); RBC Distribution Width 12.5 % (11.5-14.5); Red Blood Cell (RBC) Count 3.92 mill/uL (4.70-6.10); White Blood Cell (WBC) Count 10.1 thou/uL (4.8-10.8)
[2020-06-30 04:47] LABS: Anion Gap 13 mmol/L (10-20); BUN (Urea Nitrogen) 17 mg/dL (8.9-20.6); Calc. Creatinine Clearance 54 mL/min (70-130); Calcium 8.8 mg/dL (7.8-10.44); Carbon Dioxide 27 mmol/L (22-29); Chloride 101 mmol/L (98-107); Glucose 122 mg/dL (70-105); Potassium 4.1 mmol/L (3.5-5.1); Sodium 137 mmol/L (136-145)
[2020-06-30] MEDS: Levothyroxine Sodium 25 MCG TAB PO SCH (05:33)
[2020-06-30] MEDS: Allopurinol 100 MG TAB PO SCH (07:39)
[2020-06-30] MEDS: Amlodipine 10 MG TAB PO SCH (07:39)
[2020-06-30] MEDS: Multivitamin W/ Minerals 1 TAB PO SCH (07:39)
[2020-06-30] MEDS: Pantoprazole 40 MG VIAL IVP SCH (07:40)
[2020-06-30] MEDS: Thiamine 100 MG TAB PO SCH ×2 (07:40→07:50)
[2020-06-30] MEDS: Hydrochlorothiazide 25 MG TAB PO SCH (07:40)
[2020-06-30] MEDS: Carvedilol 3.125 MG TAB PO SCH (07:40)
[2020-06-30] MEDS: Magnesium Oxide 400 MG TAB PO SCH (07:40)
[2020-06-30] MEDS: Aspirin Chewable 81 MG TAB PO SCH (07:40)
[2020-06-30] MEDS: Folic Acid 1 MG TAB PO SCH (07:40)
[2020-06-30] MEDS ORDERED: predniSONE 20 MG TAB PO SCH (09:45)
[2020-06-30] MEDS: Lorazepam 1 MG TAB PO PRN (11:51)
[2020-06-30] MEDS ORDERED: Carvedilol 3.125 MG TAB PO SCH (14:30)
[2020-06-30] MEDS: Carvedilol 6.25 MG TAB PO SCH (17:11)
[2020-06-30] MEDS: Colchicine 0.6 MG TAB PO SCH (21:16)
[2020-06-30] MEDS: Atorvastatin Calcium 40 MG TAB PO SCH (21:16)
[2020-07-01] MEDS: cefTRIAXone\\ROCEPHIN 1 GM in Sodium Chloride 0.9% 100 ML IVPB SCH (03:25)
[2020-07-01] MEDS: Levothyroxine Sodium 25 MCG TAB PO SCH (05:55)
[2020-07-01] MEDS: Pantoprazole 40 MG VIAL IVP SCH (07:16)
[2020-07-01] MEDS: Colchicine 0.6 MG TAB PO SCH ×2 (07:17→20:50)
[2020-07-01] MEDS: Hydrochlorothiazide 25 MG TAB PO SCH (07:17)
[2020-07-01] MEDS: Aspirin Chewable 81 MG TAB PO SCH (07:17)
[2020-07-01] MEDS: Carvedilol 6.25 MG TAB PO SCH ×2 (07:17→17:10)
[2020-07-01] MEDS: Amlodipine 10 MG TAB PO SCH (07:18)
[2020-07-01] MEDS: Multivitamin W/ Minerals 1 TAB PO SCH (07:18)
[2020-07-01] MEDS: Thiamine 100 MG TAB PO SCH (07:18)
[2020-07-01] MEDS: Allopurinol 100 MG TAB PO SCH (07:18)
[2020-07-01] MEDS: Magnesium Oxide 400 MG TAB PO SCH (07:18)
[2020-07-01] MEDS: Folic Acid 1 MG TAB PO SCH (07:18)
[2020-07-01] MEDS ORDERED: hydrALAZINE 25 MG TAB PO SCH ×3 (13:00→21:00)
[2020-07-01] MEDS ORDERED: predniSONE 20 MG TAB PO SCH (17:00)
[2020-07-01] MEDS: hydrALAZINE 25 MG TAB PO SCH (20:50)
[2020-07-01] MEDS: Atorvastatin Calcium 40 MG TAB PO SCH (20:50)
[2020-07-02] MEDS: cefTRIAXone\\ROCEPHIN 1 GM in Sodium Chloride 0.9% 100 ML IVPB SCH (03:12)
[2020-07-02] MEDS: Levothyroxine Sodium 25 MCG TAB PO SCH (05:20)
[2020-07-02] MEDS ORDERED: predniSONE 20 MG TAB PO SCH (08:00)
[2020-07-02] MEDS: Hydrochlorothiazide 25 MG TAB PO SCH (08:03)
[2020-07-02] MEDS: Magnesium Oxide 400 MG TAB PO SCH (08:03)
[2020-07-02] MEDS: Amlodipine 10 MG TAB PO SCH (08:03)
[2020-07-02] MEDS: Aspirin Chewable 81 MG TAB PO SCH (08:03)
[2020-07-02] MEDS: Thiamine 100 MG TAB PO SCH (08:04)
[2020-07-02] MEDS: hydrALAZINE 25 MG TAB PO SCH (08:04)
[2020-07-02] MEDS: Multivitamin W/ Minerals 1 TAB PO SCH (08:04)
[2020-07-02] MEDS: Allopurinol 100 MG TAB PO SCH (08:04)
[2020-07-02] MEDS: Carvedilol 6.25 MG TAB PO SCH (08:05)
[2020-07-02] MEDS: Colchicine 0.6 MG TAB PO SCH (08:05)
[2020-07-02] MEDS: Folic Acid 1 MG TAB PO SCH (08:05)
[2020-07-02] MEDS: Pantoprazole 40 MG VIAL IVP SCH (08:06)
[2020-07-02 12:39] VITALS: BP 139/94; TEMP 98.2
== END 2020-07-02 12:59 | disposition home or self-care (01) | DRG 897 ==
LOC: ERS 19:21 → ERHOLD 23:22 → 2SW 06-29 01:49 → OBSVTOIN 06-29 12:14
PROVIDERS: ADMIT Student in an Organized Health Care Education/Training Program; ATTEND Internal Medicine
DX: F10.239 Alcohol dependence with withdrawal, unspecified (principal); N39.0 Urinary tract infection, site not specified; F17.220 Nicotine dependence, chewing tobacco, uncomplicated; Z79.82 Long term (current) use of aspirin; I10 Essential (primary) hypertension; M19.90 Unspecified osteoarthritis, unspecified site; F31.9 Bipolar disorder, unspecified; F41.9 Anxiety disorder, unspecified; E78.5 Hyperlipidemia, unspecified; I12.9 Hypertensive chronic kidney disease with stage 1 through stage 4 chronic kidney disease, or unspecified chronic kidney disease; N18.30 Chronic kidney disease, stage 3 unspecified; F10.129 Alcohol abuse with intoxication, unspecified; D72.829 Elevated white blood cell count, unspecified; Z86.19 Personal history of other infectious and parasitic diseases; Z91.14 Patient's other noncompliance with medication regimen; I16.0 Hypertensive urgency; D53.9 Nutritional anemia, unspecified; E03.9 Hypothyroidism, unspecified; M10.071 Idiopathic gout, right ankle and foot; K21.9 Gastro-esophageal reflux disease without esophagitis; M10.021 Idiopathic gout, right elbow; B95.7 Other staphylococcus as the cause of diseases classified elsewhere
CPT/HCPCS: 36415; 71045; 71275; 80048; 80053; 80061; 80306; 80307; 81003; 81015; 82607; 82746; 83690; 83735; 83880; 84100; 84439; 84443; 84484; 84550; 85025; 85027; 85379; 87077; 87086; 87186; 87635; 93005; 93306; 94760; 96372; 96374; 96375; 96376; C9113; G0378; J0696; J2060; J3411; J3475; J3490; J7512; Q9967; U0003; U0005

== ENCOUNTER 2020-12-24 23:03 | Inpatient (IN) | payer OTHER ==
[2020-12-25] MEDS ORDERED: Ketorolac Tromethamine 30 MG/ML VIAL ONE (01:55)
[2020-12-25 01:56] LABS: #Eosinphils 0.1 thou/uL (0.0-0.7); #Lymphocytes 1.3 thou/uL (1.20-3.40); #Monocytes 0.7 thou/uL (0.11-0.59); #Neutrophils 3.5 thou/uL (1.40-6.50); %Basophils 0.8 % (0.0-1.0); %Eosinophils 2.5 % (0.0-10.0); %Lymphocytes 23.5 % (21.0-51.0); %Monocytes 12.4 % (0.0-10.0); %Neutrophils 60.9 % (42.0-75.0); Hemoglobin 11.9 g/dL (14.0-18.0); Mean Corpuscular HGB CONC 34.5 g/dL (32.0-36.0); Mean Corpuscular Hemoglobin 32.2 pg (27.0-31.0); Mean Corpuscular Volume 93.4 fL (78.0-98.0); Mean Platelet Volume 7.6 fL (7.4-10.4); Platelet Count 249 thou/uL (130-400); RBC Distribution Width 11.6 % (11.5-14.5); White Blood Cell (WBC) Count 5.7 thou/uL (4.8-10.8)
[2020-12-25 01:57] LABS: Bacteria/HPF 1+ HPF (None Seen); Bilirubin Negative (Negative); Blood, Urine Negative (Negative); Clarity Clear (Clear); Glucose, Urine (Dipstick) Normal (Negative); Ketone, Urine Negative (Negative); Leukocyte 75 Leu/uL (Negative); Nitrite Negative (Negative); Protein, Urine (Dipstick) 50 mg/dL (Neg-Trace); RBC/HPF 0-3 HPF (0-3); Specific Gravity, Urine 1.004 (1.002-1.036); Squamous Epithelial 0-3 HPF (0-3); Urobilinogen Normal mg/dL (Less than 2); pH, Urine 5.5 (5.0-9.0)
[2020-12-25 02:16] LABS: ALT (SGPT) 33 U/L (8-55); AST (SGOT) 47 U/L (5-34); Albumin 3.4 g/dL (3.5-5.0); Alkaline Phosphatase 76 U/L (40-110); Anion Gap 14 mmol/L (10-20); BUN (Urea Nitrogen) 18 mg/dL (8.9-20.6); Bilirubin, Total 0.3 mg/dL (0.2-1.2); Calc. Creatinine Clearance 0 mL/min (70-130); Calcium 8.5 mg/dL (7.8-10.44); Carbon Dioxide 22 mmol/L (22-29); Chloride 100 mmol/L (98-107); Globulin 3.5 g/dL (2.4-3.5); Glucose 80 mg/dL (70-105); Potassium 4.3 mmol/L (3.5-5.1); Protein, Total 6.9 g/dL (6.0-8.3); Sodium 132 mmol/L (136-145)
[2020-12-25] MEDS ORDERED: Morphine 4 MG/ML VIAL ONE (07:45)
[2020-12-25 09:00] LABS: Magnesium 1.7 mg/dL (1.6-2.6); Potassium 4.4 mmol/L (3.5-5.1)
[2020-12-25 09:12] LABS: Amphetamine Not Detected (NotDetected); Barbiturates Screen Not Detected (NotDetected); Benzodiazepine Screen Not Detected (NotDetected); Cocaine Metabolite Screen Not Detected (NotDetected); Methadone Not Detected (NotDetected); Methamphetamine Not Detected (NotDetected); Opiate Screen Not Detected (NotDetected); Oxycodone Screen Not Detected (NotDetected); Phencyclidine (PCP) Not Detected (NotDetected); THC/Cannabinoid Screen Not Detected (NotDetected); Tricyclic Screen Not Detected (NotDetected)
[2020-12-25] MEDS ORDERED: Amlodipine 5 MG TAB ONE (09:48)
[2020-12-25] MEDS ORDERED: Ondansetron ODT 4 MG TAB PO PRN (10:51)
[2020-12-25] MEDS ORDERED: Carvedilol 6.25 MG TAB PO SCH (11:15)
[2020-12-25] MEDS ORDERED: Hydrochlorothiazide 25 MG TAB PO SCH (11:15)
[2020-12-25] MEDS ORDERED: Amlodipine 5 MG TAB PO SCH (11:15)
[2020-12-25] MEDS: Tamsulosin HCl 0.4 MG CAP PO SCH (11:37)
[2020-12-25] MEDS: cefTRIAXone\\ROCEPHIN 2 GM in Sodium Chloride 0.9% 100 ML IVPB SCH (11:37)
[2020-12-25 12:09] VITALS: BMI 26.5
[2020-12-25 12:39] LABS: SARS-CoV-2 NAA Rapid Test Not Detected (NotDetected)
[2020-12-25] MEDS ORDERED: Phenazopyridine HCl 97.5 MG TABLET PO PRN (12:45)
[2020-12-25] MEDS: Carvedilol 6.25 MG TAB PO SCH (16:37)
[2020-12-25] MEDS: Acetaminophen 325 MG TAB PO PRN (19:58)
[2020-12-25] MEDS: Atorvastatin Calcium 40 MG TAB PO SCH (19:58)
[2020-12-25] MEDS ORDERED: Phenazopyridine HCl 100 MG TAB PO PRN (20:00)
[2020-12-26] MEDS: hydrALAZINE 20 MG/ML VIAL SLOW IVP PRN ×4 (04:49→06:10)
[2020-12-26] MEDS: Levothyroxine Sodium 25 MCG TAB PO SCH (04:49)
[2020-12-26] MEDS ORDERED: Morphine 2 MG/ML VIAL SLOW IVP PRN (07:05)
[2020-12-26] MEDS ORDERED: Morphine 4 MG/ML VIAL SLOW IVP PRN (07:15)
[2020-12-26] MEDS ORDERED: Morphine 4 MG/ML VIAL SLOW IVP SCH (07:15)
[2020-12-26] MEDS: Carvedilol 6.25 MG TAB PO SCH ×2 (08:04→17:37)
[2020-12-26] MEDS: Tamsulosin HCl 0.4 MG CAP PO SCH (08:04)
[2020-12-26] MEDS: Thiamine 100 MG TAB PO SCH (08:04)
[2020-12-26] MEDS: Aspirin 81 mg Enteric Coated Tablet PO SCH (08:04)
[2020-12-26] MEDS: Folic Acid 1 MG TAB PO SCH (08:04)
[2020-12-26] MEDS: Amlodipine 10 MG TAB PO SCH (08:04)
[2020-12-26 08:13] LABS: Anion Gap 12 mmol/L (10-20); BUN (Urea Nitrogen) 22 mg/dL (8.9-20.6); Calc. Creatinine Clearance 51 mL/min (70-130); Calcium 9.2 mg/dL (7.8-10.44); Carbon Dioxide 27 mmol/L (22-29); Chloride 102 mmol/L (98-107); Glucose 96 mg/dL (70-105); Potassium 4.9 mmol/L (3.5-5.1); Sodium 136 mmol/L (136-145)
[2020-12-26] MEDS ORDERED: Hydrochlorothiazide 25 MG TAB PO SCH (09:00)
[2020-12-26] MEDS: cefTRIAXone\\ROCEPHIN 2 GM in Sodium Chloride 0.9% 100 ML IVPB SCH (10:05)
[2020-12-26] MEDS: HYDROcodone/Acetaminophen 5/325 mg Tablet PO PRN (15:43)
[2020-12-26] MEDS: Atorvastatin Calcium 40 MG TAB PO SCH (19:59)
[2020-12-27] MEDS: Acetaminophen 325 MG TAB PO PRN ×2 (04:28→20:26)
[2020-12-27] MEDS: HYDROcodone/Acetaminophen 5/325 mg Tablet PO PRN (04:28)
[2020-12-27] MEDS: hydrALAZINE 20 MG/ML VIAL SLOW IVP PRN (04:30)
[2020-12-27] MEDS: Levothyroxine Sodium 25 MCG TAB PO SCH (05:09)
[2020-12-27] MEDS: cefTRIAXone\\ROCEPHIN 2 GM in Sodium Chloride 0.9% 100 ML IVPB SCH (08:27)
[2020-12-27] MEDS: Tamsulosin HCl 0.4 MG CAP PO SCH (08:27)
[2020-12-27] MEDS: Aspirin 81 mg Enteric Coated Tablet PO SCH (08:27)
[2020-12-27] MEDS: Thiamine 100 MG TAB PO SCH (08:27)
[2020-12-27] MEDS: Folic Acid 1 MG TAB PO SCH (08:27)
[2020-12-27] MEDS: Carvedilol 6.25 MG TAB PO SCH ×2 (08:27→16:17)
[2020-12-27] MEDS: Amlodipine 10 MG TAB PO SCH (08:27)
[2020-12-27] MEDS ORDERED: Carvedilol 6.25 MG TAB PO SCH (08:45)
[2020-12-27] MEDS: Hydrochlorothiazide 25 MG TAB PO SCH (09:23)
[2020-12-27] MEDS ORDERED: Colchicine 0.6 MG TAB PO SCH (12:00)
[2020-12-27] MEDS ORDERED: Lorazepam 1 MG TAB PO PRN (13:43)
[2020-12-27] MEDS ORDERED: Lorazepam 2 MG/ML VIAL SLOW IVP PRN (13:45)
[2020-12-27] MEDS ORDERED: Lorazepam 2 MG/ML VIAL IM PRN (13:54)
[2020-12-27] MEDS: Lorazepam 1 MG TAB PO SCH ×2 (14:19→20:27)
[2020-12-27] MEDS: Atorvastatin Calcium 40 MG TAB PO SCH (20:27)
[2020-12-27] MEDS: Colchicine 0.6 MG TAB PO SCH (20:27)
[2020-12-28] MEDS: Lorazepam 1 MG TAB PO SCH ×4 (00:47→21:53)
[2020-12-28] MEDS: Acetaminophen 325 MG TAB PO PRN ×2 (00:47→17:49)
[2020-12-28] MEDS: Levothyroxine Sodium 25 MCG TAB PO SCH (05:08)
[2020-12-28 06:37] LABS: Anion Gap 14 mmol/L (10-20); BUN (Urea Nitrogen) 22 mg/dL (8.9-20.6); Calc. Creatinine Clearance 48 mL/min (70-130); Carbon Dioxide 26 mmol/L (22-29); Chloride 98 mmol/L (98-107); Glucose 97 mg/dL (70-105); Potassium 4.1 mmol/L (3.5-5.1); Sodium 134 mmol/L (136-145)
[2020-12-28] MEDS: Multivit, Therapeutic 1 TAB PO SCH (07:51)
[2020-12-28] MEDS: Colchicine 0.6 MG TAB PO SCH ×3 (07:51→20:47)
[2020-12-28] MEDS: Aspirin 81 mg Enteric Coated Tablet PO SCH ×2 (07:51→07:53)
[2020-12-28] MEDS: Carvedilol 6.25 MG TAB PO SCH ×2 (07:52→17:49)
[2020-12-28] MEDS: Amlodipine 10 MG TAB PO SCH (07:52)
[2020-12-28] MEDS: Thiamine 100 MG TAB PO SCH (07:52)
[2020-12-28] MEDS: Hydrochlorothiazide 25 MG TAB PO SCH (07:53)
[2020-12-28] MEDS: Tamsulosin HCl 0.4 MG CAP PO SCH (07:53)
[2020-12-28] MEDS: Folic Acid 1 MG TAB PO SCH (07:53)
[2020-12-28] MEDS: Sodium Chloride 0.9% 1,000 ML IV SCH ×2 (09:41→15:31)
[2020-12-28] MEDS: cefTRIAXone\\ROCEPHIN 2 GM in Sodium Chloride 0.9% 100 ML IVPB SCH (10:52)
[2020-12-28] MEDS ORDERED: Lorazepam 1 MG TAB PO PRN (13:43)
[2020-12-28] MEDS: Atorvastatin Calcium 40 MG TAB PO SCH (20:48)
[2020-12-29] MEDS: Sodium Chloride 0.9% 1,000 ML IV SCH ×4 (03:20→22:21)
[2020-12-29] MEDS: Acetaminophen 325 MG TAB PO PRN (04:18)
[2020-12-29] MEDS: Lorazepam 1 MG TAB PO SCH (05:32)
[2020-12-29] MEDS: Levothyroxine Sodium 25 MCG TAB PO SCH (05:32)
[2020-12-29 06:35] LABS: Anion Gap 11 mmol/L (10-20); BUN (Urea Nitrogen) 21 mg/dL (8.9-20.6); Calc. Creatinine Clearance 54 mL/min (70-130); Calcium 8.4 mg/dL (7.8-10.44); Carbon Dioxide 25 mmol/L (22-29); Chloride 101 mmol/L (98-107); Glucose 95 mg/dL (70-105); Potassium 4.2 mmol/L (3.5-5.1); Sodium 133 mmol/L (136-145)
[2020-12-29] MEDS: Colchicine 0.6 MG TAB PO SCH (08:11)
[2020-12-29] MEDS: Hydrochlorothiazide 25 MG TAB PO SCH (08:11)
[2020-12-29] MEDS: Thiamine 100 MG TAB PO SCH (08:11)
[2020-12-29] MEDS: Folic Acid 1 MG TAB PO SCH (08:12)
[2020-12-29] MEDS: Tamsulosin HCl 0.4 MG CAP PO SCH (08:12)
[2020-12-29] MEDS: Amlodipine 10 MG TAB PO SCH (08:12)
[2020-12-29] MEDS: Carvedilol 25 MG TAB PO SCH ×2 (08:12→18:28)
[2020-12-29] MEDS: Multivit, Therapeutic 1 TAB PO SCH (08:12)
[2020-12-29] MEDS ORDERED: Lorazepam 1 MG TAB PO PRN (13:43)
[2020-12-29] MEDS ORDERED: Lorazepam 0.5 MG TAB PO SCH (13:45)
[2020-12-29] MEDS ORDERED: Lorazepam 1 MG TAB PO SCH (21:00)
[2020-12-29] MEDS: Atorvastatin Calcium 40 MG TAB PO SCH (22:00)
[2020-12-30] MEDS: Levothyroxine Sodium 25 MCG TAB PO SCH (05:33)
[2020-12-30] MEDS: Sodium Chloride 0.9% 1,000 ML IV SCH (05:34)
[2020-12-30 06:47] LABS: Anion Gap 12 mmol/L (10-20); BUN (Urea Nitrogen) 21 mg/dL (8.9-20.6); Calc. Creatinine Clearance 58 mL/min (70-130); Calcium 8.7 mg/dL (7.8-10.44); Carbon Dioxide 25 mmol/L (22-29); Chloride 104 mmol/L (98-107); Glucose 86 mg/dL (70-105); Potassium 4.4 mmol/L (3.5-5.1); Sodium 137 mmol/L (136-145)
[2020-12-30] MEDS ORDERED: Allopurinol 100 MG TAB PO SCH (09:00)
[2020-12-30] MEDS ORDERED: Lorazepam 1 MG TAB PO SCH (09:00)
[2020-12-30] MEDS: Tamsulosin HCl 0.4 MG CAP PO SCH (09:13)
[2020-12-30] MEDS: Multivit, Therapeutic 1 TAB PO SCH (09:13)
[2020-12-30] MEDS: Colchicine 0.6 MG TAB PO SCH (09:13)
[2020-12-30] MEDS: Carvedilol 25 MG TAB PO SCH (09:13)
[2020-12-30] MEDS: Folic Acid 1 MG TAB PO SCH (09:13)
[2020-12-30] MEDS: Amlodipine 10 MG TAB PO SCH (09:13)
[2020-12-30] MEDS: Hydrochlorothiazide 25 MG TAB PO SCH (09:13)
[2020-12-30] MEDS: Aspirin 81 mg Enteric Coated Tablet PO SCH (09:13)
[2020-12-30] MEDS: Thiamine 100 MG TAB PO SCH (09:13)
[2020-12-30] MEDS ORDERED: Lorazepam 0.5 MG TAB PO PRN (13:43)
[2020-12-30 15:31] VITALS: BP 146/85; TEMP 98.1
[2020-12-31] MEDS ORDERED: Minoxidil 2.5 MG TAB PO SCH (09:00)
== END 2020-12-30 16:15 | disposition home or self-care (01) | DRG 690 ==
LOC: ERS 23:03 → T4-A 12-25 09:03 → OBSVTOIN 12-27 13:47
PROVIDERS: ADMIT Family Medicine; ATTEND Family Medicine
PROC: 0T7D8DZ Dilation of Urethra with Intraluminal Device, Via Natural or Artificial Opening Endoscopic (ICD-10-PCS; principal; 2020-12-25)
PROC: 0T9B80Z Drainage of Bladder with Drainage Device, Via Natural or Artificial Opening Endoscopic (ICD-10-PCS; 2020-12-27)
DX: N13.6 Pyonephrosis (principal); E87.1 Hypo-osmolality and hyponatremia; N17.9 Acute kidney failure, unspecified; N18.30 Chronic kidney disease, stage 3 unspecified; E78.5 Hyperlipidemia, unspecified; E03.9 Hypothyroidism, unspecified; N40.1 Benign prostatic hyperplasia with lower urinary tract symptoms; F10.10 Alcohol abuse, uncomplicated; I16.0 Hypertensive urgency; E83.42 Hypomagnesemia; D64.9 Anemia, unspecified; E66.01 Morbid (severe) obesity due to excess calories; M79.605 Pain in left leg; M10.9 Gout, unspecified; Z20.822 Contact with and (suspected) exposure to COVID-19; I12.9 Hypertensive chronic kidney disease with stage 1 through stage 4 chronic kidney disease, or unspecified chronic kidney disease; Z88.8 Allergy status to other drugs, medicaments and biological substances; Z79.82 Long term (current) use of aspirin; Z79.899 Other long term (current) drug therapy; Z98.890 Other specified postprocedural states; Z80.42 Family history of malignant neoplasm of prostate; Z68.26 Body mass index [BMI] 26.0-26.9, adult
CPT/HCPCS: 36415; 51702; 74176; 80048; 80053; 80306; 81003; 81015; 83735; 84443; 85025; 87086; 96365; 96374; 96375; 96376; G0378; J0360; J0696; J1885; J2270; J3475; J3490; J7050; U0002

== ENCOUNTER 2021-01-27 12:36 | Outpatient (CLI) | payer OTHER | END 2021-01-27 12:37 | disposition home or self-care (01) | LOC: BICULT 12:36 | PROVIDERS: ATTEND Urology | DX: N13.39 Other hydronephrosis (principal); N18.9 Chronic kidney disease, unspecified; R33.9 Retention of urine, unspecified | CPT/HCPCS: 76770 ==

== ENCOUNTER 2021-03-25 19:10 | Observation (INO) | payer OTHER ==
[2021-03-25 21:02] LABS: #Basophils 0.1 thou/uL (0.0-0.2); #Eosinphils 0.1 thou/uL (0.0-0.7); #Lymphocytes 2.3 thou/uL (1.20-3.40); #Monocytes 0.6 thou/uL (0.11-0.59); #Neutrophils 3.5 thou/uL (1.40-6.50); %Basophils 1.3 % (0.0-1.0); %Eosinophils 1.7 % (0.0-10.0); %Lymphocytes 34.4 % (21.0-51.0); %Monocytes 9.6 % (0.0-10.0); Hemoglobin 13.1 g/dL (14.0-18.0); Mean Corpuscular HGB CONC 34.6 g/dL (32.0-36.0); Mean Corpuscular Hemoglobin 31.6 pg (27.0-31.0); Mean Corpuscular Volume 91.2 fL (78.0-98.0); Mean Platelet Volume 7.1 fL (7.4-10.4); Platelet Count 370 thou/uL (130-400); RBC Distribution Width 13.1 % (11.5-14.5); Red Blood Cell (RBC) Count 4.14 mill/uL (4.70-6.10); White Blood Cell (WBC) Count 6.6 thou/uL (4.8-10.8)
[2021-03-25 21:24] LABS: ALT (SGPT) 43 U/L (8-55); AST (SGOT) 87 U/L (5-34); Albumin 3.4 g/dL (3.5-5.0); Alkaline Phosphatase 114 U/L (40-110); Anion Gap 15 mmol/L (10-20); BUN (Urea Nitrogen) 20 mg/dL (8.9-20.6); Bilirubin, Total 0.3 mg/dL (0.2-1.2); Calc. Creatinine Clearance 0 mL/min (70-130); Calcium 8.2 mg/dL (7.8-10.44); Carbon Dioxide 22 mmol/L (22-29); Chloride 103 mmol/L (98-107); Globulin 3.8 g/dL (2.4-3.5); Glucose 110 mg/dL (70-105); Potassium 4.7 mmol/L (3.5-5.1); Protein, Total 7.2 g/dL (6.0-8.3); Sodium 135 mmol/L (136-145)
[2021-03-25 21:40] LABS: CKMB 0.8 ng/mL (0-6.6)
[2021-03-25] MEDS ORDERED: Aspirin Chewable 81 MG TAB ONE (22:13)
[2021-03-25] MEDS ORDERED: Ondansetron ODT 4 MG TAB SL PRN (23:45)
[2021-03-25] MEDS ORDERED: Acetaminophen 325 MG TAB PO PRN (23:45)
[2021-03-25] MEDS ORDERED: Ondansetron PF 4 MG/2 ML Vial IVP PRN (23:45)
[2021-03-26 00:15] VITALS: BMI 27.0
[2021-03-26] MEDS ORDERED: Bisacodyl 5 MG TAB PO PRN (00:35)
[2021-03-26] MEDS ORDERED: Senokot S 8.6-50 MG TAB PO PRN (00:35)
[2021-03-26] MEDS ORDERED: Bisacodyl 10 MG SUPP PR PRN (00:35)
[2021-03-26] MEDS ORDERED: Calcium Carbonate 500 MG ChewTAB PO PRN (00:35)
[2021-03-26] MEDS ORDERED: Lorazepam 2 MG/ML VIAL IM PRN (01:43)
[2021-03-26] MEDS ORDERED: Lorazepam 1 MG TAB PO PRN (01:43)
[2021-03-26] MEDS ORDERED: Electrolyte Replacement Protocol 1 EACH FS SCH (01:45)
[2021-03-26] MEDS ORDERED: guaiFENesin 200 MG TAB PO PRN (02:13)
[2021-03-26] MEDS: Lorazepam 1 MG TAB PO SCH ×3 (02:50→21:28)
[2021-03-26 02:56] LABS: #Basophils 0.1 thou/uL (0.0-0.2); #Eosinphils 0.1 thou/uL (0.0-0.7); #Lymphocytes 1.5 thou/uL (1.20-3.40); #Monocytes 0.6 thou/uL (0.11-0.59); #Neutrophils 2.2 thou/uL (1.40-6.50); %Basophils 1.5 % (0.0-1.0); %Eosinophils 2.9 % (0.0-10.0); %Lymphocytes 33.8 % (21.0-51.0); %Monocytes 12.9 % (0.0-10.0); Hemoglobin 11.2 g/dL (14.0-18.0); Mean Corpuscular Volume 91.1 fL (78.0-98.0); Mean Platelet Volume 7.1 fL (7.4-10.4); Platelet Count 313 thou/uL (130-400); RBC Distribution Width 13.3 % (11.5-14.5); White Blood Cell (WBC) Count 4.6 thou/uL (4.8-10.8)
[2021-03-26 03:16] LABS: Troponin I 0.036 ng/mL (< 0.028)
[2021-03-26 03:24] LABS: Chloride 104 mmol/L (98-107); Potassium 4.5 mmol/L (3.5-5.1); Sodium 136 mmol/L (136-145)
[2021-03-26 03:25] LABS: Calcium 8.4 mg/dL (7.8-10.44); Glucose 87 mg/dL (70-105)
[2021-03-26 03:27] LABS: Anion Gap 14 mmol/L (10-20); Carbon Dioxide 23 mmol/L (22-29)
[2021-03-26 03:28] LABS: Hemoglobin A1c 5.3 % (4.0-6.0)
[2021-03-26 03:29] LABS: BUN (Urea Nitrogen) 19 mg/dL (8.9-20.6); Calc. Creatinine Clearance 51 mL/min (70-130)
[2021-03-26 03:30] LABS: Phosphorus 3.3 mg/dL (2.3-4.7)
[2021-03-26] MEDS ORDERED: Magnesium 2 GM/50 ML 2 GM in Premix Bag 1 BAG IVPB SCH (04:00)
[2021-03-26 04:01] LABS: Triglycerides 43 mg/dL (Less than 150)
[2021-03-26 04:06] LABS: Cardiac Risk 1.7 (Less than 4.5); Cholesterol 166 mg/dl (< 200 Desired); HDL Cholesterol 100 mg/dL (>60 Neg Risk); LDL Cholesterol, Calculated 57 mg/dL
[2021-03-26] MEDS: Levothyroxine Sodium 25 MCG TAB PO SCH (05:10)
[2021-03-26] MEDS: Tamsulosin HCl 0.4 MG CAP PO SCH ×2 (08:49→21:27)
[2021-03-26] MEDS: Multivit, Therapeutic 1 TAB PO SCH ×2 (08:49→21:27)
[2021-03-26] MEDS: Allopurinol 100 MG TAB PO SCH ×2 (08:50→21:26)
[2021-03-26] MEDS: Thiamine 100 MG TAB PO SCH ×2 (08:50→21:27)
[2021-03-26] MEDS: Amlodipine 10 MG TAB PO SCH ×2 (08:50→21:26)
[2021-03-26] MEDS: Folic Acid 1 MG TAB PO SCH ×2 (08:50→21:26)
[2021-03-26] MEDS ORDERED: ADENOSINE 60 MG/20 ML VIAL ONE (09:36)
[2021-03-26] MEDS ORDERED: Ondansetron PF 4 MG/2 ML Vial IVP PRN (12:34)
[2021-03-26] MEDS ORDERED: Lorazepam 2 MG/ML VIAL SLOW IVP SCH (14:00)
[2021-03-26] MEDS ORDERED: Lorazepam 2 MG/ML VIAL SLOW IVP PRN (14:02)
[2021-03-26] MEDS ORDERED: chlordiazePOXIDE HCl 25 MG CAP PO SCH (21:00)
[2021-03-26] MEDS ORDERED: Atorvastatin Calcium 40 MG TAB PO SCH (21:00)
[2021-03-26 23:20] LABS: SARS-CoV-2 PCR by NAA DETECTED (NotDetected)
[2021-03-27] MEDS ORDERED: Lorazepam 1 MG TAB PO PRN (01:43)
[2021-03-27] MEDS: Levothyroxine Sodium 25 MCG TAB PO SCH (04:59)
[2021-03-27] MEDS: chlordiazePOXIDE HCl 25 MG CAP PO SCH ×2 (05:00→13:14)
[2021-03-27 05:56] LABS: Anion Gap 14 mmol/L (10-20); BUN (Urea Nitrogen) 19 mg/dL (8.9-20.6); Calc. Creatinine Clearance 46 mL/min (70-130); Calcium 8.7 mg/dL (7.8-10.44); Carbon Dioxide 23 mmol/L (22-29); Chloride 106 mmol/L (98-107); Glucose 81 mg/dL (70-105); Potassium 4.7 mmol/L (3.5-5.1); Sodium 138 mmol/L (136-145)
[2021-03-27 06:12] LABS: Band 2 % (5-11); Eosinophils 4 % (0-10); Hemoglobin 11.4 g/dL (14.0-18.0); Hypochromia MODERATE=16-30 cells (100X) (0-5/hpf); Lymphocytes 27 % (21-51); MDiff Complete? YES; Mean Corpuscular HGB CONC 33.9 g/dL (32.0-36.0); Mean Corpuscular Hemoglobin 31.1 pg (27.0-31.0); Mean Corpuscular Volume 91.9 fL (78.0-98.0); Mean Platelet Volume 7.6 fL (7.4-10.4); Monocytes 14 % (0-10); Neutrophil 53 % (42-75); Nucleated RBC 1 % (0); Platelet Count 270 thou/uL (130-400); Platelet Morphology Comment Appears Adequate; RBC Distribution Width 13.3 % (11.5-14.5); Red Blood Cell (RBC) Count 3.65 mill/uL (4.70-6.10); Reflex for Review?? YES; Stomatocytes SLIGHT = 2-5 cells (100X) (0-1/hpf); Target Cells SLIGHT = 2-5 cells (100X) (0-1/hpf); Tear Drops SLIGHT = 2-5 cells (100X) (0-1/hpf); White Blood Cell (WBC) Count 4.2 thou/uL (4.8-10.8)
[2021-03-27] MEDS: Folic Acid 1 MG TAB PO SCH (10:10)
[2021-03-27] MEDS: Allopurinol 100 MG TAB PO SCH (10:10)
[2021-03-27] MEDS: Amlodipine 10 MG TAB PO SCH (10:10)
[2021-03-27] MEDS: Multivit, Therapeutic 1 TAB PO SCH (10:11)
[2021-03-27] MEDS: Tamsulosin HCl 0.4 MG CAP PO SCH (10:11)
[2021-03-27] MEDS: Thiamine 100 MG TAB PO SCH (10:11)
[2021-03-27 21:16] VITALS: BP 142/95; TEMP 98.6
[2021-03-28] MEDS ORDERED: FLU VACC QS2021-22(6MOS UP)/PF 60 MCG/0.5 ML SYRINGE IM ONE (01:00)
[2021-03-28] MEDS ORDERED: Lorazepam 1 MG TAB PO PRN (01:43)
[2021-03-28] MEDS ORDERED: Lorazepam 0.5 MG TAB PO SCH (02:00)
[2021-03-29] MEDS ORDERED: Lorazepam 0.5 MG TAB PO PRN (01:43)
== END 2021-03-27 14:15 | disposition home or self-care (01) ==
LOC: ERS 19:10 → 2NO 22:23
PROVIDERS: ADMIT Family Medicine; ATTEND Family Medicine
DX: K21.9 Gastro-esophageal reflux disease without esophagitis (principal); U07.1 COVID-19; F10.139 Alcohol abuse with withdrawal, unspecified; I12.9 Hypertensive chronic kidney disease with stage 1 through stage 4 chronic kidney disease, or unspecified chronic kidney disease; N18.30 Chronic kidney disease, stage 3 unspecified; E03.9 Hypothyroidism, unspecified; M10.9 Gout, unspecified; N40.0 Benign prostatic hyperplasia without lower urinary tract symptoms; F17.220 Nicotine dependence, chewing tobacco, uncomplicated; Z79.899 Other long term (current) drug therapy; Z88.8 Allergy status to other drugs, medicaments and biological substances; N30.00 Acute cystitis without hematuria
CPT/HCPCS: 36415; 71045; 78452; 80048; 80053; 80061; 81001; 82553; 83036; 83735; 83880; 84100; 84443; 84484; 85025; 85060; 87086; 93005; 93017; 96374; 96375; A9500; G0378; J0153; J2060; J2405; J3475; U0003; U0005

== ENCOUNTER 2021-04-01 10:59 | Emergency (ER) | payer OTHER ==
[2021-04-01 12:01] LABS: Hemoglobin 12.2 g/dL (14.0-18.0); Mean Corpuscular HGB CONC 32.3 g/dL (32.0-36.0); Mean Corpuscular Hemoglobin 29.5 pg (27.0-31.0); Mean Corpuscular Volume 91.4 fL (78.0-98.0); Mean Platelet Volume 8.4 fL (7.4-10.4); Platelet Count 262 thou/uL (130-400); RBC Distribution Width 13.1 % (11.5-14.5); Red Blood Cell (RBC) Count 4.15 mill/uL (4.70-6.10); White Blood Cell (WBC) Count 8.3 thou/uL (4.8-10.8)
[2021-04-01 12:17] LABS: ALT (SGPT) 125 U/L (8-55); AST (SGOT) 179 U/L (5-34); Albumin 3.2 g/dL (3.5-5.0); Alkaline Phosphatase 293 U/L (40-110); Anion Gap 15 mmol/L (10-20); BUN (Urea Nitrogen) 23 mg/dL (8.9-20.6); Bilirubin, Total 1.6 mg/dL (0.2-1.2); Calc. Creatinine Clearance 0 mL/min (70-130); Calcium 9.8 mg/dL (7.8-10.44); Carbon Dioxide 25 mmol/L (22-29); Chloride 99 mmol/L (98-107); Globulin 5.2 g/dL (2.4-3.5); Glucose 122 mg/dL (70-105); Potassium 4.2 mmol/L (3.5-5.1); Protein, Total 8.4 g/dL (6.0-8.3); Sodium 135 mmol/L (136-145)
[2021-04-01 12:26] LABS: Band 3 % (5-11); Eosinophils 1 % (0-10); Lymphocytes 14 % (21-51); MDiff Complete? YES; Monocytes 26 % (0-10); Neutrophil 56 % (42-75); Platelet Morphology Comment Appears Adequate; RBC Morphology Normal
[2021-04-01] MEDS ORDERED: Colchicine 0.6 MG TAB PO SCH (13:15)
== END 2021-04-01 16:05 | disposition home or self-care (01) ==
LOC: ERS 10:59
DX: M10.9 Gout, unspecified (principal); M25.562 Pain in left knee; I10 Essential (primary) hypertension; F17.220 Nicotine dependence, chewing tobacco, uncomplicated
CPT/HCPCS: 36415; 80053; 85025

== ENCOUNTER 2021-05-20 07:35 | Outpatient (CLI) | payer OTHER ==
[2021-05-20 08:24] LABS: Hemoglobin 12.3 g/dL (13.5-17.5); Mean Corpuscular HGB CONC 32.5 g/dL (32.0-36.0); Mean Corpuscular Hemoglobin 29.1 pg (27.0-33.0); Mean Corpuscular Volume 89.8 fl (81.2-95.1); Mean Platelet Volume 9.8 fl (7.4-10.4); Platelet Count 425 10x3/uL (150-450); RBC Distribution Width 15.1 % (11.5-14.5); Red Blood Cell (RBC) Count 4.22 10x6/uL (4.32-5.72); White Blood Cell (WBC) Count 4.3 10x3/uL (3.5-10.5)
[2021-05-20 08:34] LABS: Bilirubin Neg (Negative); Blood, Urine 25 (Negative); Clarity Clear (Clear); Glucose, Urine (Dipstick) Normal (Negative); Ketone, Urine Negative (Negative); Leukocyte 25 (Negative); Nitrite Negative (Negative); Protein, Urine (Dipstick) 100 mg/dl (Neg-Trace); Urobilinogen Normal mg/dL (Less than 2)
[2021-05-20 08:42] LABS: Anion Gap 15 mmol/L (10-20); BUN (Urea Nitrogen) 23 mg/dL (8.9-20.6); Calc. Creatinine Clearance 0 mL/min (70-130); Calcium 8.6 mg/dL (7.8-10.44); Carbon Dioxide 20 mmol/L (22-29); Chloride 110 mmol/L (98-107); Glucose 79 mg/dL (70-105); Potassium 5.1 mmol/L (3.5-5.1); Sodium 140 mmol/L (136-145)
[2021-05-20 09:32] LABS: Bacteria/HPF None Seen HPF (None Seen); RBC/HPF 0-3 HPF (0-3); Squamous Epithelial 0-3 HPF (0-3); WBC/HPF 0-3 HPF (0-3)
[2021-05-20 19:23] LABS: SARS-CoV-2 PCR by NAA Not Detected (NotDetected)
== END 2021-05-20 07:36 | disposition home or self-care (01) ==
LOC: LABBT 07:35
PROVIDERS: ATTEND Urology
DX: Z01.818 Encounter for other preprocedural examination (principal); N35.912 Unspecified bulbous urethral stricture, male; Z20.822 Contact with and (suspected) exposure to COVID-19
CPT/HCPCS: 80048; 81001; 85027; 87077; 87086; 87186; 93005; 93010; U0003; U0005

== ENCOUNTER 2021-05-24 07:05 | Day surgery (SDC) | payer OTHER ==
[2021-05-19 10:06] VITALS: BMI 26.4
[2021-05-24] MEDS ORDERED: ceFAZolin 2 GM/Dextrose 50 ML 2 GM in Premix Bag 1 BAG IVPB SCH (08:45)
[2021-05-24] MEDS ORDERED: Iothalamate Meglumine 60% 50 ML VIAL FS ONE (11:43)
[2021-05-24] MEDS ORDERED: Midazolam HCl 2 mg/2 ml Vial ONE (11:49)
[2021-05-24] MEDS ORDERED: Fentanyl 250 MCG/5 ML VIAL ONE (11:49)
[2021-05-24] MEDS ORDERED: Triamcinolone 40 MG/ML VIAL ONE (12:01)
[2021-05-24] MEDS ORDERED: ceFAZolin 2 GM/Dextrose 50 ML IVPB ONE (12:10)
[2021-05-24] MEDS ORDERED: PROPOFOL 200 MG/20 ML VIAL ONE (12:17)
[2021-05-24] MEDS ORDERED: Lidocaine 1% PF 5 ML VIAL ONE (12:17)
[2021-05-24] MEDS ORDERED: Ondansetron PF 4 MG/2 ML Vial ONE (12:17)
[2021-05-24] MEDS ORDERED: Ketorolac Tromethamine 30 MG/ML VIAL ONE (12:17)
[2021-05-24] MEDS ORDERED: Dexamethasone 20 MG/5 ML VIAL ONE (12:17)
[2021-05-24] MEDS ORDERED: Bupivacaine 0.25% HCL 30 ML VIAL ONE (12:43)
[2021-05-24] MEDS ORDERED: hydrALAZINE 20 MG/ML VIAL ONE (14:17)
[2021-05-24] MEDS ORDERED: Oxybutynin 5 MG TAB ONE (14:44)
[2021-05-24] MEDS ORDERED: Labetalol HCl 100 MG/20 ML VIAL ONE (15:52)
[2021-05-24] MEDS ORDERED: HYDROcodone/Acetaminophen 5/325 mg Tablet ONE (16:34)
== END 2021-05-24 16:49 | disposition home or self-care (01) ==
LOC: SDC 07:05
PROVIDERS: ATTEND Urology
PROC: BT0BZZZ Plain Radiography of Bladder and Urethra (ICD-10-PCS; principal; 2021-05-24)
PROC: 0T9B30Z Drainage of Bladder with Drainage Device, Percutaneous Approach (ICD-10-PCS; principal; 2021-05-24)
DX: N35.912 Unspecified bulbous urethral stricture, male (principal); N40.1 Benign prostatic hyperplasia with lower urinary tract symptoms; N13.8 Other obstructive and reflux uropathy; R33.8 Other retention of urine; I12.9 Hypertensive chronic kidney disease with stage 1 through stage 4 chronic kidney disease, or unspecified chronic kidney disease; N18.30 Chronic kidney disease, stage 3 unspecified; M10.9 Gout, unspecified; F10.10 Alcohol abuse, uncomplicated; E03.9 Hypothyroidism, unspecified; E78.5 Hyperlipidemia, unspecified; Z79.899 Other long term (current) drug therapy; Z88.8 Allergy status to other drugs, medicaments and biological substances
CPT/HCPCS: 51610; 74450; J0360; J0690; J1100; J1885; J2250; J2405; J2704; J3010; J3301; Q9961-U8; S0020

== ENCOUNTER 2021-07-26 15:33 | Inpatient (IN) | payer OTHER ==
[2021-07-26 16:37] LABS: Mean Corpuscular HGB CONC 33.2 g/dL (32.0-36.0); Mean Corpuscular Hemoglobin 30.8 pg (27.0-31.0); Mean Corpuscular Volume 92.8 fL (78.0-98.0); Mean Platelet Volume 8.3 fL (7.4-10.4); Platelet Count 240 thou/uL (130-400); RBC Distribution Width 12.4 % (11.5-14.5); Red Blood Cell (RBC) Count 4.23 mill/uL (4.70-6.10); White Blood Cell (WBC) Count 8.4 thou/uL (4.8-10.8)
[2021-07-26 16:52] LABS: Band 1 % (5-11); Lymphocytes 7 % (21-51); MDiff Complete? YES; Monocytes 20 % (0-10); Neutrophil 72 % (42-75); Platelet Morphology Comment Appears Adequate; Polychromasia SLIGHT = 2-3 cells (100X) (0-2/hpf)
[2021-07-26 16:56] LABS: ALT (SGPT) 94 U/L (8-55); AST (SGOT) 214 U/L (5-34); Albumin 3.3 g/dL (3.5-5.0); Alkaline Phosphatase 230 U/L (40-110); Anion Gap 15 mmol/L (10-20); BUN (Urea Nitrogen) 39 mg/dL (8.9-20.6); Bilirubin, Total 1.4 mg/dL (0.2-1.2); Calc. Creatinine Clearance 0 mL/min (70-130); Calcium 9.1 mg/dL (7.8-10.44); Carbon Dioxide 23 mmol/L (22-29); Chloride 93 mmol/L (98-107); Globulin 4.7 g/dL (2.4-3.5); Glucose 122 mg/dL (70-105); Sodium 127 mmol/L (136-145)
[2021-07-26] MEDS ORDERED: Lidocaine Viscous Sol 2% 15 ml UD Cup ONE (17:25)
[2021-07-26] MEDS ORDERED: Acetaminophen 500 MG TAB ONE (17:25)
[2021-07-26] MEDS ORDERED: Famotidine 20 MG TAB ONE (17:25)
[2021-07-26] MEDS ORDERED: predniSONE 20 MG TAB ONE (17:25)
[2021-07-26] MEDS ORDERED: Mag-Al 1200 mg/1200 mg/30 ML UDCUP ONE (17:25)
[2021-07-26] MEDS ORDERED: Aspirin Chewable 81 MG TAB ONE (17:25)
[2021-07-26] MEDS ORDERED: Lactated Ringer's 500 ML IV SCH (19:00)
[2021-07-26] MEDS ORDERED: Lactated Ringer's 1,000 ML IV SCH (19:00)
[2021-07-26 19:56] LABS: HBSAg Index 0.35 S/CO (0-0.99); Hep B Surf Ag Non-Reactive S/CO (NonReactive)
[2021-07-26 19:57] LABS: Hep A IgM AB Non-Reactive (NonReactive); Hep A IgM S/CO 0.22 S/CO (0-0.79)
[2021-07-26 19:58] LABS: HBCM Index 0.11 S/CO (0-0.79); Hepatitis B Core IgM Abs Non-Reactive (NonReactive)
[2021-07-26 20:08] LABS: Ferritin 504.25 ng/mL (22-322)
[2021-07-26 20:15] LABS: Hep C IgG Ab Reflex HepC Qnt (NonReactive); Hep C Index 9.34 S/CO (0-0.79)
[2021-07-26 21:51] LABS: Troponin I 0.016 ng/mL (< 0.028)
[2021-07-26] MEDS: chlordiazePOXIDE HCl 25 MG CAP PO SCH (22:37)
[2021-07-27 04:15] LABS: #Lymphocytes 0.5 thou/uL (1.20-3.40); #Monocytes 0.7 thou/uL (0.11-0.59); #Neutrophils 3.9 thou/uL (1.40-6.50); %Lymphocytes 9.9 % (21.0-51.0); %Monocytes 12.9 % (0.0-10.0); %Neutrophils 77.1 % (42.0-75.0); Hemoglobin 11.8 g/dL (14.0-18.0); Mean Corpuscular HGB CONC 33.6 g/dL (32.0-36.0); Mean Corpuscular Hemoglobin 31.2 pg (27.0-31.0); Mean Corpuscular Volume 92.7 fL (78.0-98.0); Mean Platelet Volume 8.6 fL (7.4-10.4); Platelet Count 245 thou/uL (130-400); RBC Distribution Width 12.3 % (11.5-14.5); Red Blood Cell (RBC) Count 3.77 mill/uL (4.70-6.10)
[2021-07-27 04:36] LABS: ALT (SGPT) 80 U/L (8-55); AST (SGOT) 116 U/L (5-34); Albumin 2.9 g/dL (3.5-5.0); Alkaline Phosphatase 208 U/L (40-110); Anion Gap 14 mmol/L (10-20); BUN (Urea Nitrogen) 50 mg/dL (8.9-20.6); Bilirubin, Total 0.8 mg/dL (0.2-1.2); Calc. Creatinine Clearance 26 mL/min (70-130); Calcium 9.1 mg/dL (7.8-10.44); Carbon Dioxide 22 mmol/L (22-29); Chloride 94 mmol/L (98-107); Globulin 4.3 g/dL (2.4-3.5); Glucose 181 mg/dL (70-105); Potassium 4.2 mmol/L (3.5-5.1); Protein, Total 7.2 g/dL (6.0-8.3); Sodium 126 mmol/L (136-145)
[2021-07-27] MEDS: Levothyroxine Sodium 25 MCG TAB PO SCH (05:27)
[2021-07-27 08:03] LABS: Reticulocyte Count 0.9 % (0.5-1.5)
[2021-07-27 08:10] LABS: Bacteria/HPF None Seen HPF (None Seen); Bilirubin Negative (Negative); Blood, Urine Negative (Negative); Clarity Clear (Clear); Glucose, Urine (Dipstick) Normal (Negative); Ketone, Urine Negative (Negative); Leukocyte Negative Leu/uL (Negative); Nitrite Negative (Negative); Protein, Urine (Dipstick) 70 mg/dL (Neg-Trace); RBC/HPF None Seen HPF (0-3); Specific Gravity, Urine 1.009 (1.002-1.036); Squamous Epithelial None Seen HPF (0-3); WBC/HPF 0-3 HPF (0-3); pH, Urine 5.5 (5.0-9.0)
[2021-07-27 08:17] LABS: Iron Binding Capacity, Total 169 mcg/dL (261-462); Transferrin, Serum 135 mg/dL (174-364)
[2021-07-27 08:22] LABS: Creatinine, Urine 73.59 mg/dL (63-166)
[2021-07-27] MEDS: Folic Acid 1 MG TAB PO SCH (09:02)
[2021-07-27] MEDS: Amlodipine 10 MG TAB PO SCH (09:02)
[2021-07-27] MEDS: Allopurinol 100 MG TAB PO SCH (09:02)
[2021-07-27] MEDS: Oxybutynin 5 MG TAB PO SCH (09:02)
[2021-07-27] MEDS: Enoxaparin Sodium 30 MG/0.3 ML SYRINGE SC SCH (09:03)
[2021-07-27] MEDS: chlordiazePOXIDE HCl 25 MG CAP PO SCH ×2 (09:03→21:23)
[2021-07-27] MEDS ORDERED: Ondansetron ODT 4 MG TAB PO PRN (09:29)
[2021-07-27] MEDS: Thiamine HCl 200 MG/2 ML VIAL SLOW IVP SCH (11:27)
[2021-07-27] MEDS: Ferrous Gluconate 324 MG TAB PO SCH (11:27)
[2021-07-27 12:19] LABS: SARS-CoV-2 PCR by NAA Not Detected (NotDetected)
[2021-07-27 12:28] LABS: Anion Gap 16 mmol/L (10-20); BUN (Urea Nitrogen) 51 mg/dL (8.9-20.6); Calc. Creatinine Clearance 26 mL/min (70-130); Calcium 8.8 mg/dL (7.8-10.44); Carbon Dioxide 22 mmol/L (22-29); Chloride 95 mmol/L (98-107); Glucose 173 mg/dL (70-105); Potassium 4.3 mmol/L (3.5-5.1); Sodium 129 mmol/L (136-145)
[2021-07-27 12:37] LABS: Cardiac Risk 2.8 (Less than 4.5)
[2021-07-27 15:32] LABS: Hemoglobin A1c 5.3 % (4.0-6.0)
[2021-07-27] MEDS: Sodium Chloride 0.9% 1,000 ML IV SCH (15:46)
[2021-07-27] MEDS ORDERED: Carvedilol 25 MG TAB PO SCH (17:00)
[2021-07-27] MEDS: Carvedilol 6.25 MG TAB PO SCH (17:29)
[2021-07-27 20:52] LABS: Anion Gap 16 mmol/L (10-20); BUN (Urea Nitrogen) 55 mg/dL (8.9-20.6); Calc. Creatinine Clearance 27 mL/min (70-130); Calcium 8.5 mg/dL (7.8-10.44); Carbon Dioxide 21 mmol/L (22-29); Chloride 98 mmol/L (98-107); Glucose 134 mg/dL (70-105); Potassium 3.7 mmol/L (3.5-5.1); Sodium 131 mmol/L (136-145)
[2021-07-27] MEDS: Atorvastatin Calcium 40 MG TAB PO SCH (21:23)
[2021-07-28] MEDS: Sodium Chloride 0.9% 1,000 ML IV SCH ×5 (00:56→22:08)
[2021-07-28 05:07] LABS: ALT (SGPT) 66 U/L (8-55); AST (SGOT) 65 U/L (5-34); Albumin 2.7 g/dL (3.5-5.0); Alkaline Phosphatase 176 U/L (40-110); Anion Gap 14 mmol/L (10-20); BUN (Urea Nitrogen) 56 mg/dL (8.9-20.6); Bilirubin, Total 0.3 mg/dL (0.2-1.2); Calc. Creatinine Clearance 31 mL/min (70-130); Calcium 8.4 mg/dL (7.8-10.44); Carbon Dioxide 23 mmol/L (22-29); Chloride 102 mmol/L (98-107); Globulin 3.8 g/dL (2.4-3.5); Glucose 111 mg/dL (70-105); Potassium 3.6 mmol/L (3.5-5.1); Protein, Total 6.5 g/dL (6.0-8.3); Sodium 135 mmol/L (136-145)
[2021-07-28 05:54] LABS: Band 18 % (5-11); Hemoglobin 10.6 g/dL (14.0-18.0); Lymphocytes 22 % (21-51); MDiff Complete? YES; Mean Corpuscular HGB CONC 33.3 g/dL (32.0-36.0); Mean Platelet Volume 8.7 fL (7.4-10.4); Monocytes 12 % (0-10); Neutrophil 48 % (42-75); Platelet Count 257 thou/uL (130-400); RBC Distribution Width 12.2 % (11.5-14.5); Red Blood Cell (RBC) Count 3.41 mill/uL (4.70-6.10); White Blood Cell (WBC) Count 5.7 thou/uL (4.8-10.8)
[2021-07-28] MEDS: Levothyroxine Sodium 25 MCG TAB PO SCH (06:21)
[2021-07-28] MEDS ORDERED: Folic Acid 1 MG TAB PO SCH (09:00)
[2021-07-28] MEDS: Carvedilol 6.25 MG TAB PO SCH ×2 (09:22→17:15)
[2021-07-28] MEDS: Folic Acid 1 MG TAB PO SCH (09:24)
[2021-07-28] MEDS: Tamsulosin HCl 0.4 MG CAP PO SCH (09:24)
[2021-07-28] MEDS: Allopurinol 100 MG TAB PO SCH (09:24)
[2021-07-28] MEDS: Oxybutynin 5 MG TAB PO SCH (09:25)
[2021-07-28] MEDS: Amlodipine 10 MG TAB PO SCH (09:25)
[2021-07-28] MEDS: Enoxaparin Sodium 30 MG/0.3 ML SYRINGE SC SCH (09:26)
[2021-07-28] MEDS: chlordiazePOXIDE HCl 25 MG CAP PO SCH (09:59)
[2021-07-28] MEDS: Thiamine HCl 200 MG/2 ML VIAL SLOW IVP SCH (10:23)
[2021-07-28 12:14] LABS: Hematocrit 34.9 % (37.5-51.0); RBC Folate Test Component 923 ng/mL (>498)
[2021-07-28] MEDS: Atorvastatin Calcium 40 MG TAB PO SCH (20:36)
[2021-07-29] MEDS: Levothyroxine Sodium 25 MCG TAB PO SCH (05:31)
[2021-07-29] MEDS: Sodium Chloride 0.9% 1,000 ML IV SCH (05:31)
[2021-07-29 06:36] LABS: ALT (SGPT) 59 U/L (8-55); AST (SGOT) 52 U/L (5-34); Albumin 2.7 g/dL (3.5-5.0); Alkaline Phosphatase 149 U/L (40-110); Anion Gap 14 mmol/L (10-20); BUN (Urea Nitrogen) 44 mg/dL (8.9-20.6); Bilirubin, Total 0.2 mg/dL (0.2-1.2); Calc. Creatinine Clearance 41 mL/min (70-130); Calcium 8.4 mg/dL (7.8-10.44); Carbon Dioxide 21 mmol/L (22-29); Chloride 110 mmol/L (98-107); Globulin 3.5 g/dL (2.4-3.5); Glucose 109 mg/dL (70-105); Potassium 3.9 mmol/L (3.5-5.1); Protein, Total 6.2 g/dL (6.0-8.3); Sodium 141 mmol/L (136-145)
[2021-07-29 06:39] LABS: Hemoglobin 10.4 g/dL (14.0-18.0); Hypochromia SLIGHT = 6-15 cells (100X) (0-5/hpf); Lymphocytes 26 % (21-51); MDiff Complete? YES; Mean Corpuscular HGB CONC 33.3 g/dL (32.0-36.0); Mean Corpuscular Hemoglobin 31.5 pg (27.0-31.0); Mean Corpuscular Volume 94.6 fL (78.0-98.0); Mean Platelet Volume 8.1 fL (7.4-10.4); Monocytes 12 % (0-10); Neutrophil 62 % (42-75); Platelet Count 323 thou/uL (130-400); Platelet Morphology Comment Appears Adequate; RBC Distribution Width 12.4 % (11.5-14.5); Red Blood Cell (RBC) Count 3.32 mill/uL (4.70-6.10); White Blood Cell (WBC) Count 3.9 thou/uL (4.8-10.8)
[2021-07-29] MEDS: Carvedilol 6.25 MG TAB PO SCH (09:56)
[2021-07-29] MEDS: Oxybutynin 5 MG TAB PO SCH (09:56)
[2021-07-29] MEDS: Ferrous Gluconate 324 MG TAB PO SCH (09:56)
[2021-07-29] MEDS: Allopurinol 100 MG TAB PO SCH (09:56)
[2021-07-29] MEDS: Amlodipine 10 MG TAB PO SCH (09:56)
[2021-07-29] MEDS: Folic Acid 1 MG TAB PO SCH (09:56)
[2021-07-29] MEDS: Tamsulosin HCl 0.4 MG CAP PO SCH (09:56)
[2021-07-29] MEDS: Enoxaparin Sodium 30 MG/0.3 ML SYRINGE SC SCH (10:04)
[2021-07-29] MEDS: Thiamine HCl 200 MG/2 ML VIAL SLOW IVP SCH (11:26)
[2021-07-29 13:28] VITALS: BMI 28.1
[2021-07-29 16:16] VITALS: BP 134/93; TEMP 97.7
[2021-07-29 17:15] LABS: Hep C PCR-Quant HCV Not Detected IU/mL (.)
[2021-07-30] MEDS ORDERED: Thiamine 100 MG TAB PO SCH (09:00)
== END 2021-07-29 16:24 | disposition home or self-care (01) | DRG 683 ==
LOC: ERS 15:33 → 2NO 18:44 → OBSVTOIN 07-27 09:52 → T4-B 07-28 15:11
PROVIDERS: ADMIT Family Medicine; ATTEND Family Medicine
DX: N17.9 Acute kidney failure, unspecified (principal); E87.1 Hypo-osmolality and hyponatremia; Z20.822 Contact with and (suspected) exposure to COVID-19; I25.10 Atherosclerotic heart disease of native coronary artery without angina pectoris; F31.9 Bipolar disorder, unspecified; I12.9 Hypertensive chronic kidney disease with stage 1 through stage 4 chronic kidney disease, or unspecified chronic kidney disease; N18.31 Chronic kidney disease, stage 3a; K21.9 Gastro-esophageal reflux disease without esophagitis; M10.9 Gout, unspecified; F17.220 Nicotine dependence, chewing tobacco, uncomplicated; D63.1 Anemia in chronic kidney disease; N40.0 Benign prostatic hyperplasia without lower urinary tract symptoms; K80.20 Calculus of gallbladder without cholecystitis without obstruction; F41.9 Anxiety disorder, unspecified; F10.10 Alcohol abuse, uncomplicated; E03.9 Hypothyroidism, unspecified; Z88.8 Allergy status to other drugs, medicaments and biological substances; Z95.0 Presence of cardiac pacemaker; Z79.890 Hormone replacement therapy; Z79.899 Other long term (current) drug therapy
CPT/HCPCS: 36415; 71045; 76705; 80053; 80061; 80074; 81001; 82570; 82607; 82728; 82747; 82977; 83036; 83540; 83550; 83930; 83935; 84300; 84443; 84466; 84484; 84540; 85025; 85046; 87522; 93005; J1650; J3411; J7050; J7120; J7512; U0003; U0005